=== PATIENT | male | born 1960 | race Caucasian/White ===

== ENCOUNTER 2017-04-02 12:49 | Inpatient (IN) | payer OTHER ==
[2017-04-02] VITALS (7 sets, daily range): BP systolic 116–158; BP diastolic 73–84; PULSE 78–90; RESP 18; TEMP 97.7–98.3; O2SAT 94–100
[~2017-04-02] VITALS: Ht 175.3 cm; Wt 84.5 kg
[~2017-04-02 12:49] MED LIST: BISA10R PR; DOCU1CAP39 PO; ENOX40P SQ; FLEEENE3 PR; HYDR-3580 PO; MAGN30S PO
[2017-04-02] MEDS ORDERED: SODIUM CHLOR 0.9% 1000 ML INJ 1,000 ML IV ONE (12:56)
--- NOTE | 2017-04-02 12:56 | PD ---
HPI Chief Complaint: Neuro Symptoms/ Deficits Time Seen by Provider: 12:56 Travel History International Travel<30 days: No Contact w/Intl Traveler<30days: No Traveled to known affect area: No History of Present Illness HPI 56 year old male presents to the ED for evaluation of RUE numbness and decreased weakness. Pt woke up at 830a this morning and "felt weird." His right arm felt "asleep", but he thought nothing of it, so he went back to bed. When he woke up later, the arm was still numb. He noticed a decrease in strength when holding his coffee mug. He felt like it was improving, but then returned, so he decided to come to the ED for evaluation. Pt has not significant medical history. He denies any chest pain or tightness. No difficulty breathing. No headache or visual changes. No other symptoms to report. PFSH Past Medical History Arthritis: No Asthma: No Autoimmune Disease: No Anxiety: No Depression: No Heart Rhythm Problems: No Cancer: No Cardiovascular Problems: No High Cholesterol: No Chemotherapy: No Chest Pain: No Congestive Heart Failure: No COPD: No Cerebrovascular Accident: No Diabetes: No Endocrine: No GERD: Yes Genitourinary: No Hiatal Hernia: No Immune Disorder: No Kidney Stones: No Musculoskeletal: No Neurologic: No Reproductive: No Respiratory: No Migraines: No Radiation Therapy: No Renal Failure: No Seizures: No Sickle Cell Disease: No Sleep Apnea: No Thyroid Disease: No Ulcer: No Past Surgical History Abdominal Surgery: No Cardiac Surgery: No Endocrine Surgery: No Eye Surgery: Yes (Cataract sugery ) Genitourinary Surgery: No Gynecologic Surgery: No Oral Surgery: Yes (Gum surgery) Thoracic Surgery: No Other Surgery: Yes (VARICOUS VEIN) Social History Alcohol Use: No Tobacco Use: No Substance Use: No Allergies-Medications (Allergen,Severity, Reaction): Coded Allergies: No Known Allergies (Unverified , 04/20/14) Reported Meds & Prescriptions Reported Meds & Active Scripts Active Review of Systems Except as stated in HPI: all other systems reviewed are Neg Physical Exam Narrative GENERAL: Well-nourished male patient, lying in bed in no acute distress. SKIN: Focused skin assessment warm/dry. HEAD: Atraumatic. Normocephalic. EYES: Pupils equal and round. No scleral icterus. No injection or drainage. ENT: No nasal bleeding or discharge. Mucous membranes pink and moist. NECK: Trachea midline. No JVD. CARDIOVASCULAR: Regular rate and rhythm. No murmur appreciated. RESPIRATORY: No accessory muscle use. Clear to auscultation. Breath sounds equal bilaterally. GASTROINTESTINAL: Abdomen soft, non-tender, nondistended. Hepatic and splenic margins not palpable. MUSCULOSKELETAL: No obvious deformities. No clubbing. No cyanosis. No edema. 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 No obvious cranial nerve deficits. Normal speech. PSYCHIATRIC: Appropriate mood and affect; insight and judgment normal. Data Data Last Documented VS Vital Signs Date Time Temp Pulse Resp B/P Pulse Ox O2 Delivery O2 Flow Rate FiO2 04/02/17 14:54 78 18 134/84 100 Nasal Cannula 2 04/02/17 12:52 97.7 Orders Activity Bed Rest (04/02/17 ) Electrocardiogram (04/02/17 ) Prothrombin Time / Inr (Pt) (04/02/17 12:56) Act Partial Throm Time (Ptt) (04/02/17 12:56) Complete Blood Count With Diff (04/02/17 12:56) Fibrinogen (04/02/17 12:56) Creatine Kinase (Cpk) (04/02/17 12:56) Troponin I (04/02/17 12:56) Drug Screen, Random Urine (04/02/17 12:56) Blood Glucose (04/02/17 12:56) Ecg Monitoring (04/02/17 12:56) Neuro Checks Q2HX12,Q4H (04/02/17 12:56) Nursing Bedside Swallow Assess .ONCE (04/02/17 12:56) Iv Access Insert/Monitor (04/02/17 12:56) NPO (04/02/17 12:56) Oximetry (04/02/17 12:56) Oxygen Administration (04/02/17 12:56) Sodium Chlor 0.9% 1000 Ml Inj (Ns 1000 M (04/02/17 12:56) Cath For Specimen (04/02/17 12:56) Nursing Bedside Swallow Assess .ONCE (04/02/17 12:56) Ct Brain W/O Iv Contrast(Rout) (04/02/17 ) Aspirin Chew (Aspirin Chew) (04/02/17 14:45) Labs Laboratory Tests Test 04/02/17 04/02/17 13:08 14:03 White Blood Count 5.8 TH/MM3 Red Blood Count 5.32 MIL/MM3 Hemoglobin 15.4 GM/DL Hematocrit 46.4 % Mean Corpuscular Volume 87.2 FL Mean Corpuscular Hemoglobin 28.9 PG Mean Corpuscular Hemoglobin 33.2 % Concent Red Cell Distribution Width 13.6 % Platelet Count 215 TH/MM3 Mean Platelet Volume 8.6 FL Neutrophils (%) (Auto) 51.0 % Lymphocytes (%) (Auto) 31.1 % Monocytes (%) (Auto) 14.5 % Eosinophils (%) (Auto) 2.7 % Basophils (%) (Auto) 0.7 % Neutrophils # (Auto) 3.0 TH/MM3 Lymphocytes # (Auto) 1.8 TH/MM3 Monocytes # (Auto) 0.8 TH/MM3 Eosinophils # (Auto) 0.2 TH/MM3 Basophils # (Auto) 0.0 TH/MM3 CBC Comment DIFF FINAL Differential Comment Prothrombin Time 10.7 SEC Prothromb Time International 1.0 RATIO Ratio Activated Partial 27.4 SEC Thromboplast Time Fibrinogen 419 mg/dL Total Creatine Kinase 72 U/L Troponin I LESS THAN 0.02 NG/ML Urine Opiates Screen NEG Urine Barbiturates Screen NEG Urine Amphetamines Screen NEG Urine Benzodiazepines Screen NEG Urine Cocaine Screen NEG Urine Cannabinoids Screen NEG MDM Medical Decision Making Medical Screen Exam Complete: Yes Emergency Medical Condition: Yes Medical Record Reviewed: Yes Differential Diagnosis TIA versus CVA versus electrolyte abnormality versus nerve palsy Narrative Course 56-year-old male presents to emergency department for evaluation of right upper extremity numbness or weakness. Patient does have positive pronator drift with decreased strength right upper extremity. No other focal deficits or weakness. CT imaging is without acute intracranial normality. Patient is given by mouth aspirin. Laboratory Tests Test 04/02/17 04/02/17 13:08 14:03 White Blood Count 5.8 TH/MM3 Red Blood Count 5.32 MIL/MM3 Hemoglobin 15.4 GM/DL Hematocrit 46.4 % Mean Corpuscular Volume 87.2 FL Mean Corpuscular Hemoglobin 28.9 PG Mean Corpuscular Hemoglobin 33.2 % Concent Red Cell Distribution Width 13.6 % Platelet Count 215 TH/MM3 Mean Platelet Volume 8.6 FL Neutrophils (%) (Auto) 51.0 % Lymphocytes (%) (Auto) 31.1 % Monocytes (%) (Auto) 14.5 % Eosinophils (%) (Auto) 2.7 % Basophils (%) (Auto) 0.7 % Neutrophils # (Auto) 3.0 TH/MM3 Lymphocytes # (Auto) 1.8 TH/MM3 Monocytes # (Auto) 0.8 TH/MM3 Eosinophils # (Auto) 0.2 TH/MM3 Basophils # (Auto) 0.0 TH/MM3 CBC Comment DIFF FINAL Differential Comment Prothrombin Time 10.7 SEC Prothromb Time International 1.0 RATIO Ratio Activated Partial 27.4 SEC Thromboplast Time Fibrinogen 419 mg/dL Total Creatine Kinase 72 U/L Troponin I LESS THAN 0.02 NG/ML Urine Opiates Screen NEG Urine Barbiturates Screen NEG Urine Amphetamines Screen NEG Urine Benzodiazepines Screen NEG Urine Cocaine Screen NEG Urine Cannabinoids Screen NEG Lab work is without acute concern. A local but the symptoms and we have no time of onset. He does not meet stroke criteria. Patient be admitted observation for TIA versus CVA workup. Diagnosis Primary Impression: Right upper extremity numbness Additional Impression: Right arm weakness Admitting Information Admitting Physician Requests: Observation Condition: Stable Ana Rosa Eaton Apr 02, 2017 12:56
[2017-04-02 13:23] LABS: BASOPHIL % 0.7 % (0.0-2.0); EOSINOPHIL # 0.2 TH/MM3 (0-0.4); EOSINOPHIL % 2.7 % (0.0-4.0); HEMATOCRIT 46.4 % (39.0-51.0); HEMO FLAGS DIFF FINAL; LYMPH % 31.1 % (9.0-44.0); LYMPHOCYTE # 1.8 TH/MM3 (1.0-4.8); MEAN CELL VOLUME 87.2 FL (80.0-100.0); MEAN CORPUSCULAR HEMOGLOBIN 28.9 PG (27.0-34.0); MEAN CORPUSCULAR HGB CONC 33.2 % (32.0-36.0); MONO % 14.5 % (0.0-8.0); PLATELET COUNT 215 TH/MM3 (150-450); RED BLOOD COUNT 5.32 MIL/MM3 (4.50-5.90); RED CELL DISTRIBUTION WIDTH 13.6 % (11.6-17.2); WHITE BLOOD COUNT 5.8 TH/MM3 (4.0-11.0)
[2017-04-02 13:45] LABS: APTT (PATIENT) 27.4 SEC (24.3-30.1); PROTHROMBIN TIME - PATIENT 10.7 SEC (9.8-11.6)
[2017-04-02 13:57] LABS: CREATINE KINASE 72 U/L (39-308)
--- NOTE | 2017-04-02 14:26 | RADRPT ---
EXAM DATE/TIME: 04/02/2017 14:15 [facility] COMPARISON: No previous studies available for comparison. INDICATIONS : Right arm weakness since 8am. RADIATION DOSE: 34.84 CTDIvol (mGy) MEDICAL HISTORY : None SURGICAL HISTORY : lens implant, gum surgery, varicose veins ENCOUNTER: Initial ACUITY: 1 day PAIN SCALE: 0/10 LOCATION: cranial TECHNIQUE: Multiple contiguous axial images were obtained of the head. Using automated exposure control and adj ustment of the mA and/or kV according to patient size, radiation dose was kept as low as reasonably a chievable to obtain optimal diagnostic quality images. DICOM format image data is available electro nically for review and comparison. FINDINGS: CEREBRUM: The ventricles are normal for age. No evidence of midline shift, mass lesion, hemorrhage or acute in farction. No extra-axial fluid collections are seen. POSTERIOR FOSSA: The cerebellum and brainstem are intact. The 4th ventricle is midline. The cerebellopontine angle i s unremarkable. EXTRACRANIAL: The visualized portion of the orbits is intact. SKULL: The calvaria is intact. No evidence of skull fracture. CONCLUSION: Negative noncontrast CT. Eliu Hartmann MD on April 02, 2017 at 14:23 Board Certified Radiologist. This report was verified electronically.
[2017-04-02] MEDS ORDERED: ASPIRIN 81 MG CHEW TAB CHEW SCH (14:45)
[2017-04-02] MEDS ORDERED: LABETALOL HCL 100 MG/20 ML VIAL IV PRN (15:45)
[2017-04-02] MEDS ORDERED: TEMAZEPAM 15 MG CAP PO PRN (15:45)
[2017-04-02] MEDS ORDERED: MAGNESIUM HYDROXIDE SUSP 30 ML CUP PO PRN (15:45)
[2017-04-02] MEDS ORDERED: ACETAMINOPHEN 325 MG TAB PO PRN (15:45)
[2017-04-02] MEDS ORDERED: ENALAPRILAT 1.25 MG/ML VIAL IV PRN (15:45)
[2017-04-02] MEDS ORDERED: NALOXONE HCL 0.4 MG/ML AMP IV PRN (15:45)
[2017-04-02] MEDS ORDERED: ONDANSETRON HCL 4 MG/2 ML VIAL IVP PRN (15:45)
[2017-04-02] MEDS ORDERED: SODIUM CHLORIDE 0.9% FLUSH 10 ML FLUSH IV FLUSH PRN (15:45)
[2017-04-02] MEDS: ASPIRIN 325 MG TAB PO SCH (15:55)
--- NOTE | 2017-04-02 16:08 | RADRPT ---
EXAM DATE/TIME: 04/02/2017 15:55 [facility] COMPARISON: ELBOW LEFT COMPLETE (4 VWS), April 21, 2014, 10:49. INDICATIONS : Cough, possible stroke. MEDICAL HISTORY : None. SURGICAL HISTORY : Bilateral varicose vein removal. ENCOUNTER: Initial ACUITY: 1 day PAIN SCORE: 1/10 LOCATION: Bilateral chest FINDINGS: A single view of the chest demonstrates the lungs to be symmetrically aerated without evidence of mas s, infiltrate or effusion. The cardiomediastinal contours are unremarkable. Osseous structures are intact. CONCLUSION: 1. No acute cardiopulmonary findings. Dipesh Zamora MD on April 02, 2017 at 16:06 Board Certified Radiologist. This report was verified electronically.
--- NOTE | 2017-04-02 16:28 | HHI.HP ---
HPI [facility] Primary Care Physician Guillermo Cabral MD Admission Diagnosis CVA v TIA Chief Complaint: Presthesia Travel History International Travel<30 Days: No Contact w/Intl Traveler <30 Da: No Traveled to Known Affected Are: No History of Present Illness Mr. Colon is a pleasant 56 y/o male without significant PMH who presented to the ED for evaluation of RUE numbness and weakness. Pt reportedly woke up at 8: 30AM this morning and "felt weird." His states that he felt like his right arm was "asleep." He dismissed this and went back sleep. He later woke up and it felt that his arm was still numb. 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 After a few hours he felt like it was improving, but then it worsened again and he decided to come to the ED for evaluation. He denies any chest pain, SOB, headache or visual changes. Pt was admitted for further workup and to r/o CVA. Review of Systems Constitutional: DENIES: Fever, Chills Eyes: DENIES: Vision loss Ears, nose, mouth, throat: DENIES: Hearing loss Respiratory: DENIES: Cough, Shortness of breath Cardiovascular: DENIES: Chest pain, Palpitations, Lower Extremity Edema Gastrointestinal: DENIES: Abdominal pain, Nausea, Vomiting Genitourinary: DENIES: Dysuria Musculoskeletal: DENIES: Neck pain Integumentary: DENIES: Rash Neurologic: COMPLAINS OF: Localized weakness, Paresthesias, DENIES: Headache, Speech Problems, Poor Balance Psychiatric: DENIES: Confusion, Depression Past Family Social History Past Medical History Hx of cataracts Several nondisplaced fractures of the pelvis and left radial fracture in 2013 after a fall off of a ladder GERD Hyperlipidemia Past Surgical History Hx of cataract surgery Hx of varicose vein surgery bilaterally Tonsillectomy Reported Medications No outpt medications Allergies: Coded Allergies: Penicillins (Verified Allergy, Mild, RASH, 04/02/17) Family History Noncontributory Social History Denies any alcohol, tobacco or illicit drug use Physical Exam Vital Signs Vital Signs Date Time Temp Pulse Resp B/P Pulse Ox O2 Delivery O2 Flow Rate FiO2 04/02/17 14:54 78 18 134/84 100 Nasal Cannula 2 04/02/17 13:00 100 Nasal Cannula 2 04/02/17 13:00 86 18 142/76 100 Room Air 04/02/17 12:52 97.7 90 18 158/77 100 Physical Exam GENERAL: This is a well-nourished, well-developed patient, in no apparent distress. HEENT: Atraumatic. Normocephalic. No temporal or scalp tenderness. No scleral icterus. Airway patent. NECK: Trachea midline, supple, nontender. CARDIO: Regular RESP: CTA bilaterally. No wheezes, rales, or rhonchi. ABD: +BS, soft, non-tender, nondistended. EXT: Extremities without clubbing, cyanosis, or edema. NEURO: Awake and alert. +R pronator drift; 3/5 manager business management strength RUE; 5/5 strength all other extremities. Normal speech. Laboratory Laboratory Tests Test 04/02/17 04/02/17 13:08 14:03 White Blood Count 5.8 Red Blood Count 5.32 Hemoglobin 15.4 Hematocrit 46.4 Mean Corpuscular Volume 87.2 Mean Corpuscular Hemoglobin 28.9 Mean Corpuscular Hemoglobin 33.2 Concent Red Cell Distribution Width 13.6 Platelet Count 215 Mean Platelet Volume 8.6 Neutrophils (%) (Auto) 51.0 Lymphocytes (%) (Auto) 31.1 Monocytes (%) (Auto) 14.5 Eosinophils (%) (Auto) 2.7 Basophils (%) (Auto) 0.7 Neutrophils # (Auto) 3.0 Lymphocytes # (Auto) 1.8 Monocytes # (Auto) 0.8 Eosinophils # (Auto) 0.2 Basophils # (Auto) 0.0 CBC Comment DIFF FINAL Differential Comment Prothrombin Time 10.7 Prothromb Time International 1.0 Ratio Activated Partial 27.4 Thromboplast Time Fibrinogen 419 Total Creatine Kinase 72 Troponin I LESS THAN 0.02 Urine Opiates Screen NEG Urine Barbiturates Screen NEG Urine Amphetamines Screen NEG Urine Benzodiazepines Screen NEG Urine Cocaine Screen NEG Urine Cannabinoids Screen NEG Result Diagram: 04/02/17 1308 Imaging Last Impressions Chest X-Ray 04/02/17 1531 Signed Impressions: Service Date/Time: Sunday, April 02, 2017 15:55 - CONCLUSION: 1. No acute cardiopulmonary findings. Dipesh Zamora MD Head Magnetic Resonance Angiography 04/02/17 0000 Signed Impressions: Service Date/Time: Sunday, April 02, 2017 16:05 - CONCLUSION: 1. Negative examination. Dipesh Zamora MD Head CT 04/02/17 0000 Signed Impressions: Service Date/Time: Sunday, April 02, 2017 14:15 - CONCLUSION: Negative noncontrast CT. Eliu Hartmann MD Cervical Spine MRI 04/02/17 0000 Signed Impressions: Service Date/Time: Sunday, April 02, 2017 16:05 - CONCLUSION: 1. Central canal stenosis at C5-6 secondary to diffuse disc bulge with obliteration of the CSF surrounding the cord and mild flattening. 2. Broad base disc bulge at C4- 5 greatest in left parasagittal region which reached the anterior cord with slight flattening and turning. There is no abnormal signal. 3. Moderate to severe narrowing of the neural foramina bilaterally at the C4-5 and C5-6 levels as well as on the left at C2-3. 4. Milder disc bulge at C3-4 with no mass effect upon the cord. 5. Diffuse degenerative disc change. Eliu Hartmann MD Brain MRI 04/02/17 0000 Signed Impressions: Service Date/Time: Sunday, April 02, 2017 16:05 - CONCLUSION: 1. Negative examination. Dipesh Zamora MD Last Impressions Head CT 04/02/17 0000 Signed Impressions: Service Date/Time: Sunday, April 02, 2017 14:15 - CONCLUSION: Negative noncontrast CT. Eliu Hartmann MD Septic Shock Reassessment Heart: Regular rate and rhythm Lungs: Clear Skin: Warm Assessment and Plan Problem List: (1) Right arm weakness Status: Acute Plan: - Pt is a 56 y/o male with hx of previous multiple nondisplaced fractures of the pelvis and left radial fracture in 2013 after a fall off of a ladder - Pt presented to the ED with RUE paresthesias and weakness - Head CT (04/02) --> Negative - MRI/MRA Brain (04/02) --> Negative - Carotid US ordered - 2D echo ordered - MRI Cervical spine (04/02) --> - Central canal stenosis at C5-6 secondary to diffuse disc bulge with obliteration of the CSF surrounding the cord and mild flattening. - Broad base disc bulge at C4-5 greatest in left parasagittal region which reached the anterior cord with slight flattening and turning. There is no abnormal signal. - Moderate to severe narrowing of the neural foramina bilaterally at the C4- 5 and C5-6 levels as well as on the left at C2-3. - Milder disc bulge at C3-4 with no mass effect upon the cord. - Diffuse degenerative disc change. - Consult Neurosurgery - Bed rest - Neuro checks - Pt was given ASA in the ED and started on IVF - Start Decadron 4mg Q6H - Ativan PRN for spasms - NPO after MN - DVT prophylaxis with SCDs (2) Right upper extremity numbness Status: Acute Plan: - See above. Assessment and Plan Patient examined. Assessment and plan formulated with Lois Rodriguez PA-C. I agree with the above. C5-6 disk bulge and canal stenosis Pt will need evaluation by Neurosurgery. consult placed. Lois Rodriguez Apr 02, 2017 16:28 Jude Hutchison DO Apr 03, 2017 08:30
--- NOTE | 2017-04-02 16:33 | RADRPT ---
EXAM DATE/TIME: 04/02/2017 16:05 [facility] COMPARISON: No previous studies available for comparison. INDICATIONS : TIA. Right upper extremity numbness. MEDICAL HISTORY : None. SURGICAL HISTORY : Tonsillectomy. Varicose vein surgery. ENCOUNTER: Subsequent ACUITY: 1 day PAIN SCORE: 3/10 LOCATION: cranial Please note a normal MRA of the brain does not entirely exclude the possibility of a small aneurysm, nor the possibility of distal intracranial vessel disease. TECHNIQUE: 3D time of flight MRA was performed. Source images, multiplanar STS MIP, and 3D volume MIP reconstru ctions were reviewed. FINDINGS: There is excellent visualization of the major intracranial arteries out to the second-order branch ve ssels. There is no evidence for aneurysm, vessel truncation or stenosis, and no evidence for vascula r malformation. CONCLUSION: 1. Negative examination. Dipesh Zamora MD on April 02, 2017 at 16:29 Board Certified Radiologist. This report was verified electronically.
--- NOTE | 2017-04-02 16:44 | RADRPT ---
EXAM DATE/TIME: 04/02/2017 16:05 [place] Corrected on: April 03, 2017; [facility] COMPARISON: No previous studies available for comparison. INDICATIONS : TIA. Right upper extremity numbness. MEDICAL HISTORY : None. SURGICAL HISTORY : Tonsillectomy. Varicose vein surgery. ENCOUNTER: Subsequent ACUITY: 1 day PAIN SCORE: 3/10 LOCATION: cranial TECHNIQUE: Multiplanar, multisequence MRI of the brain was performed without contrast. FINDINGS: CEREBRUM: The ventricles are normal for age. No evidence of midline shift, mass lesion, hemorrhage or acute in farction. No extraaxial fluid collections are seen. The pituitary gland and suprasellar cistern are normal in configuration. The bladder weighted images do demonstrate some very subtle increased signa l in the high left parietal cortices. WHITE MATTER: No significant signal abnormalities are seen in the white matter. POSTERIOR FOSSA: The cerebellum and brainstem are intact. The 4th ventricle is midline. The cerebellopontine angle is unremarkable. The cerebellar tonsils are normal in position. DIFFUSION IMAGING: No focal areas of restricted diffusion are seen. No evidence of acute infarction. EXTRACRANIAL: The visualized portions of the orbits and paranasal sinuses are unremarkable. CONCLUSION: 1. There is subtle abnormal flair signal in the high left parietal cortices. Dipesh Zamora MD on April 02, 2017 at 16:38 Board Certified Radiologist. This report was verified electronically. Dipesh Zamora MD on April 03, 2017 at 13:43 Board Certified Radiologist. This report was verified electronically.
--- NOTE | 2017-04-02 17:02 | RADRPT ---
EXAM DATE/TIME: 04/02/2017 16:05 [facility] COMPARISON: No previous studies available for comparison. INDICATIONS : Extremity weakness. Right upper extremity numbness. MEDICAL HISTORY : None. SURGICAL HISTORY : Tonsillectomy. Varicose vein surgery. ENCOUNTER: Subsequent ACUITY: 3 day PAIN SCORE: 3/10 LOCATION: cranial TECHNIQUE: Multiplanar, multisequence MRI examination of the cervical spine was performed. FINDINGS: VERTEBRAE: Normal vertebral body height. Homogeneous marrow signal. DISCS: There are degenerative disc changes with desiccation mild disc space narrowing. Anterior extradural d efects are noted on the sagittal images at the C3-4 and C5-6 levels. ALIGNMENT: No evidence of subluxation. CORD: Normal configuration and signal. POST FOSSA: The cerebellar tonsils are normal in position. C2-C3: The thecal sac has a normal configuration. There is no evidence of disc herniation or spinal canal s tenosis. There is moderate narrowing of the left neural foramina secondary to degenerative change inv olving the uncovertebral joint and facet joint. The right neural foramen is patent. C3-C4: There is a broad-based posterior disc bulge which comes in close contact with anterior cord with no m ass effect. The CSF space surrounding cord is nearly totally obliterated with a residual AP diameter of the canal measuring approximately 10 mm. There is moderate to severe narrowing of the neural megan francy bilaterally. C4-C5: There is a broad-based disc bulge is the left parasagittal region. This comes in contact with anterio r cord which is mildly indented and turned with no abnormal signal. The CSF space around the cord is nearly totally obliterated with a residual AP diameter of the canal measuring approximately 7-8 mm. T here is moderate to severe narrowing of the neural foramina bilaterally. C5-C6: Diffuse annular disc bulge which meets the anterior cord with slight flattening. The CSF space surrou nding the cord is obliterated and the residual AP diameter of the canal measures approximately 8 mm. There is moderate to severe narrowing of the neural foramina bilaterally. C6-C7: The thecal sac has a normal configuration. There is no evidence of disc herniation or spinal canal s tenosis. There is mild narrowing of the neural foramina bilaterally. C7-T1: The thecal sac has a normal configuration. There is no evidence of disc herniation or spinal canal s tenosis. The neural foramina are patent bilaterally. CONCLUSION: 1. Central canal stenosis at C5-6 secondary to diffuse disc bulge with obliteration of the CSF surrou nding the cord and mild flattening. 2. Broad base disc bulge at C4-5 greatest in left parasagittal region which reached the anterior cor d with slight flattening and turning. There is no abnormal signal. 3. Moderate to severe narrowing of the neural foramina bilaterally at the C4-5 and C5-6 levels as wel l as on the left at C2-3. 4. Milder disc bulge at C3-4 with no mass effect upon the cord. 5. Diffuse degenerative disc change. Eliu Hartmann MD on April 02, 2017 at 16:52 Board Certified Radiologist. This report was verified electronically.
[2017-04-02] MEDS: DEXAMETHASONE SOD PHOS 4 MG/ML VIAL IV PUSH SCH (20:04)
[2017-04-02] MEDS: SODIUM CHLORIDE 0.9% FLUSH 10 ML FLUSH IV FLUSH SCH (20:04)
[2017-04-02] MEDS: PRAVASTATIN SOD 40 MG TAB PO SCH (20:04)
[2017-04-02] MEDS: LORazepam 2 MG/ML VIAL IV PUSH PRN (21:46)
--- NOTE | 2017-04-02 22:30 | RADRPT ---
EXAM DATE/TIME: 04/02/2017 20:18 [facility] COMPARISON: No previous studies available for comparison. INDICATIONS : Transient ischemic attack. MEDICAL HISTORY : Gastroesophageal reflux disease. Heartburn. SURGICAL HISTORY : Tonsillectomy. Cataract surgery. Right lens implant. Gum surgery. Varicous vein surgery. ENCOUNTER: Initial ACUITY: 1 day PAIN SCORE: 0/10 LOCATION: Bilateral neck PEAK SYSTOLIC VELOCITIES (cm/sec): ICA/CCA RATIO: Right: 0.9 Left: 1.0 ICA: Right: 82.5 Left: 116.8 CCA: Right: 94.3 Left: 112.1 ECA: Right: 146.6 Left: 114.0 VERTEBRAL: Right: 36.1 antegrade Left: 55.0 antegrade Elevated flow velocities and ICA/CCA ratios have been found to correlate with increased degrees of vessel stenosis, calculated as percentage of diameter relative to a normal segment of distal ICA/CCA FINDINGS: RIGHT CAROTID: No significant stenosis is visualized. The waveforms are within normal limits. LEFT CAROTID: No significant stenosis is visualized. The waveforms are within normal limits. VERTEBRAL ARTERIES: Antegrade flow is seen in both vertebral arteries. MISCELLANEOUS: None. CONCLUSION: Negative. No significant plaque or narrowing of either carotid. Ramsey Swartz MD on April 02, 2017 at 22:28 Board Certified Radiologist. This report was verified electronically.
[2017-04-03] VITALS (10 sets, daily range): BP systolic 113–136; BP diastolic 70–84; PULSE 68–94; RESP 16–18; TEMP 97.5–98.3; O2SAT 95–98
[2017-04-03] MEDS: DEXAMETHASONE SOD PHOS 4 MG/ML VIAL IV PUSH SCH ×2 (00:15→05:29)
[2017-04-03] MEDS: LORazepam 2 MG/ML VIAL IV PUSH PRN ×2 (03:47→11:06)
[2017-04-03 09:19] LABS: AUTOMATED NEUTROPHIL # 3.5 TH/MM3 (1.8-7.7); BASOPHIL % 0.2 % (0.0-2.0); EOSINOPHIL % 0.2 % (0.0-4.0); HEMATOCRIT 49.7 % (39.0-51.0); HEMO FLAGS DIFF FINAL; LYMPH % 12.1 % (9.0-44.0); LYMPHOCYTE # 0.5 TH/MM3 (1.0-4.8); MEAN CELL VOLUME 88.8 FL (80.0-100.0); MEAN CORPUSCULAR HEMOGLOBIN 29.1 PG (27.0-34.0); MEAN CORPUSCULAR HGB CONC 32.7 % (32.0-36.0); MONO % 1.7 % (0.0-8.0); NEUT % 85.8 % (16.0-70.0); PLATELET COUNT 174 TH/MM3 (150-450); RED CELL DISTRIBUTION WIDTH 13.7 % (11.6-17.2)
[2017-04-03] MEDS: ASPIRIN 325 MG TAB PO SCH (09:42)
[2017-04-03] MEDS: SODIUM CHLORIDE 0.9% FLUSH 10 ML FLUSH IV FLUSH SCH ×2 (09:43→20:14)
[2017-04-03 09:45] LABS: BICARBONATE 23.3 MEQ/L (21.0-32.0); POTASSIUM 4.3 MEQ/L (3.5-5.1)
[2017-04-03 09:48] LABS: HDL CHOLESTEROL 53.4 MG/DL (40.0-60.0)
[2017-04-03] MEDS ORDERED: SODIUM CHLOR 0.9% 1000 ML INJ 1,000 ML IV SCH (10:29)
[2017-04-03 11:19] LABS: FREE T4 1.15 NG/DL (0.76-1.46)
[2017-04-03] MEDS: levETIRAcetam INJ 500 MG in SODIUM CHLORIDE 0.9% INJ 100 ML IV SCH ×2 (12:00→15:28)
[2017-04-03] MEDS: ACYCLOVIR INJ 800 MG in SODIUM CHLORIDE 0.9% INJ 150 ML IV SCH ×2 (12:00→16:36)
[2017-04-03] MEDS ORDERED: GADODIAMIDE PF 287 MG/ML 20 ML VIAL (for RAD MRI) IV ONE (12:08)
--- NOTE | 2017-04-03 12:13 | MB ---
cc: YAYA SYEKS M.D. DATE OF CONSULTATION: 04/03/2017 REASON FOR CONSULTATION: A 56-year-old right-handed man, he has been totally healthy fell off a ladder 2 years ago and had a pelvic fracture but no damage to his neck than 8 o'clock yesterday morning woke up could move the right arm well brought into the hospital was noted to have facilitations on the right arm. No symptoms above the neck. This has never happened to him before, he has never had any numbness or tingling in the arm. REVIEW OF SYSTEMS Denies any hypertension, diabetes, hypercholesterolemia, ID coronary artery bypass graft, cardiac arrhythmia, renal, hepatic, pulmonary disease, thyroid disease, lupus, ulcer, cancer seizure, stroke. He has not had any tick bites, Lyme disease. SOCIAL HISTORY Not a smoker or drinker lives with his . FAMILY HISTORY Negative cancer seizure, stroke. Positive dementia in his mother. PAST MEDICAL HISTORY: He had a past medical history vein surgery years ago. ALLERGIES NO KNOWN DRUG ALLERGIES MEDICATIONS: No medications does not take an aspirin a day. PHYSICAL EXAMINATION: IN GENERAL: Afebrile 93, 18, 136/80, sinus rhythm. NECK: There were no carotid bruits. CARDIOVASCULAR SYSTEM: Heart was regular rhythm I did not detect a murmur. NEUROLOGIC EXAM: Pupils are equal. Visual robles full. Extraocular intact without nystagmus. Face symmetric normal station. Tongue was midline. There is no drift on the left he had normal strength in the left upper and bilateral lower extremities. The right upper extremity he has 4+/5 on the right deltoid, 4/5 in the right triceps, finger his hand is fisted, hard to open up but I can open and the fingers up. He has tremors in the hand some fasciculations of the hand and also the arm and the right thigh. DTRs are 3+ throughout a little bit more hyperreflexic on the right than the left. The toes downgoing bilaterally but there is bilateral handle clonus more on the right than the left. Tone is markedly spastic in the right upper extremity slightly increased in bilateral lower extremities. He is not ataxic on finger to nose on either side. Pin prick was intact throughout. He has not had a bowel or bladder problems. LABORATORY DATA Drug screen is negative. Coags normal. Basic metabolic profile normal. Troponin normal. LDL is elevated to 124. BMP is normal. CPK normal. CBC normal. RADIOLOGIC: Had a MRA of the brain yesterday that was normal. A CT scan of his brain that was read as negative. MRI of his cervical spine showed some cord compression. Carotid ultrasound was normal. Chest x-ray Negative. MRI of the brain normal. MRI of the cervical spine; on my review he has a congenitally small spinal canal, he has a slight bulging disk C5-6. He has leftward bulging focal disc with some pressure on the cord. That would appear to be 4-5, neuro foraminal at 3-4, left greater then right, at 4/5, at all these levels. No major cord compression, however. MRI of brain; review of films. Diffusion image negative. On the flares there is a question if there is a little bit of berhane sulcal flare change on the left high up on the frontal parietal region. It shows up slightly on the diffusion image but not bright like an infarct. His MRA [place] review of the films. Does appear to be intact. IMPRESSION: This is an interesting case, initially I thought he probably had a cervical myelopathy but really do not see much on the MRI to indicate that although there is some mass effect on the left side of the cord focally at C4-5 from that focal bulging disk does not appear to be not be causing the symptoms in the bilateral lower extremities and right upper extremity. The right extremities very unusual and with the fisting probably goes more with the cortical changes on the MRI of the brain. Will check recheck an MRI of the brain with contrast along with an MR venogram. Likely an LP will have neurosurgery see him only for the cervical disk but to clear him for an LP. In addition we will check some blood work on him, I noted that he had dental work done at the end of last month and had a fever to about 101 or so. He did not take antibiotics before the dental procedure. We will do an echo make sure there is no endocarditis I will have infectious disease see him, there might be some focal cerebritis. We will check an electroencephalogram, put him on telemetry and check the MRI with contrast along with the MRI of the cervical spine with contrast in case its an occult, or myelopathy not seen well on the MR. I did not detect a murmur at this time but endocarditis could be considered. MD Rey Koch /10:16 AM /11:47 AM
--- NOTE | 2017-04-03 12:33 | RADRPT ---
EXAM DATE/TIME: 04/03/2017 11:41 [facility] COMPARISON: MRI BRAIN W/O CONTRAST, April 02, 2017, 16:05. INDICATIONS : Right upper extremity numbness. CONTRAST: 20 cc Omniscan (gadodiamide) IV MEDICAL HISTORY : None. SURGICAL HISTORY : Tonsillectomy. ENCOUNTER: Initial ACUITY: 2 day PAIN SCORE: 0/10 LOCATION: cranial TECHNIQUE: Multiplanar, multisequence MRI of the brain was performed both prior to and following the administrat ion of paramagnetic contrast. FINDINGS: CEREBRUM: The ventricles are normal for age. No evidence of midline shift, mass lesion, hemorrhage or acute in farction. No extraaxial fluid collections are seen. The pituitary gland and suprasellar cistern are normal in configuration. WHITE MATTER: No significant signal abnormalities are seen in the white matter. POSTERIOR FOSSA: The cerebellum and brainstem are intact. The 4th ventricle is midline. The cerebellopontine angle is unremarkable. The cerebellar tonsils are normal in position. DIFFUSION IMAGING: No focal areas of restricted diffusion are seen. No evidence of acute infarction. EXTRACRANIAL: The visualized portions of the orbits and paranasal sinuses are unremarkable. POST-CONTRAST: No abnormal areas of parenchymal or dural enhancement. No evidence of blood-brain barrier breakdown. CONCLUSION: Unremarkable MRI of the brain. No enhancement.. Keegan Dodd MD on April 03, 2017 at 12:30 Board Certified Radiologist. This report was verified electronically.
--- NOTE | 2017-04-03 12:42 | RADRPT ---
EXAM DATE/TIME: 04/03/2017 11:41 [facility] COMPARISON: No previous studies available for comparison. INDICATIONS : Right upper extremity numbness. CONTRAST: 20 cc Omniscan (gadodiamide) IV MEDICAL HISTORY : None. SURGICAL HISTORY : Tonsillectomy. ENCOUNTER: Initial ACUITY: 2 day PAIN SCORE: 0/10 LOCATION: Paraspinal TECHNIQUE: Multiplanar multisequence MRI of the thoracic spine was performed. FINDINGS: VERTEBRA: Normal vertebral body height. Homogeneous marrow signal. There is some chronic endplate changes from T6-T8. Diffuse mild degenerative changes. ALIGNMENT: Normal. CORD: Normal position and configuration. POST CONTRAST: No abnormal areas of contrast enhancement seen. T1-T2: Normal. T2-T3: The thecal sac has a normal diameter. No evidence of disc bulge or protrusion. T3-T4: The thecal sac has a normal diameter. No evidence of disc bulge or protrusion. T4-T5: The thecal sac has a normal diameter. No evidence of disc bulge or protrusion. T5-T6: Small asymmetric left-sided protrusion abuts the left ventral thecal sac. No canal stenosis.. T6-T7: Asymmetric left-sided disc bulge abuts ventral thecal sac without canal stenosis. T7-T8: The thecal sac has a normal diameter. No evidence of disc bulge or protrusion. T8-T9: The thecal sac has a normal diameter. No evidence of disc bulge or protrusion. T9-T10: Asymmetric left-sided bulge abuts the thecal sac without canal stenosis.. T10-T11: The thecal sac has a normal diameter. No evidence of disc bulge or protrusion. T11-T12: The thecal sac has a normal diameter. No evidence of disc bulge or protrusion. T12-L1: The thecal sac has a normal diameter. No evidence of disc bulge or protrusion. CONCLUSION: 1. Mild degenerative changes without compression fracture. 2. Disc bulges/protrusions at T5-6, T6-7 and T9-10 levels without canal stenosis. Keegan Dodd MD on April 03, 2017 at 12:39 Board Certified Radiologist. This report was verified electronically.
--- NOTE | 2017-04-03 12:44 | RADRPT ---
EXAM DATE/TIME: 04/03/2017 11:41 [facility] COMPARISON: MRI CERVICAL SPINE W/O CONTRAST, April 02, 2017, 16:05. INDICATIONS : Right upper extremity numbness. CONTRAST: 20 cc Omniscan (gadodiamide) IV MEDICAL HISTORY : None. SURGICAL HISTORY : Tonsillectomy. ENCOUNTER: Initial ACUITY: 2 day PAIN SCORE: 0/10 LOCATION: neck TECHNIQUE: Multiplanar, multisequence MRI examination of the cervical spine was performed. FINDINGS: There is motion artifact. VERTEBRAE: Normal vertebral body height. Homogeneous marrow signal. ALIGNMENT: No evidence of subluxation. CORD: Normal configuration and signal. POST FOSSA: The cerebellar tonsils are normal in position. POST-CONTRAST: No abnormal areas of enhancement are seen. The disc bulges seen on previous study are unchanged. Please refer to MRI of the cervical spine on for further detail. CONCLUSION: There is some motion artifact but no definite enhancement seen. Please refer to MRI of the cervical s pine for further detail on 04-02-17. Keegan Dodd MD on April 03, 2017 at 12:41 Board Certified Radiologist. This report was verified electronically.
--- NOTE | 2017-04-03 13:19 | PD.RAD ---
Post Procedure Progress Note Pre Procedure Diagnosis: (1) Right upper extremity numbness (2) Right arm weakness Post Procedure Diagnosis: (1) Right upper extremity numbness (2) Right arm weakness Procedure Date: Apr 03, 2017 Supervising Radiologist: Dipesh Zamora Estimated blood loss: None Anesthesia: Local Plan of Activity Patient to Unit: Nursing Unit Patient Condition: Fair Additional Comments: Lp completed single puncture at L4/L5 25cc of clear csf removed Opening pressure 22cm/h2o See PACS Report for procedural detail/treatment Dipesh Zamora MD Apr 03, 2017 13:19
--- NOTE | 2017-04-03 13:30 | RADRPT ---
EXAM DATE/TIME: 04/03/2017 11:41 [facility] COMPARISON: MRI BRAIN W & W/O CONTRAST, April 03, 2017, 11:41. MRI CERVICAL SPINE W/O CONTRAST, April 02 7, 16:05. INDICATIONS : Right upper extremity numbness. CONTRAST: 20 cc Omniscan (gadodiamide) IV MEDICAL HISTORY : None. SURGICAL HISTORY : Tonsillectomy. ENCOUNTER: Initial ACUITY: 2 day PAIN SCORE: 0/10 LOCATION: cranial Please note a normal MRA of the brain does not entirely exclude the possibility of a small aneurysm, nor the possibility of distal intracranial vessel disease. TECHNIQUE: MR venography of the brain was performed with multiplanar and 3D reconstructions. FINDINGS: The overall appearance of the examination is abnormal. The anterior and mid superior sagittal sinus i s occluded. The straight sinus is patent on the source images. The internal cerebral veins are patent on the source images. The distal portions of the superior sagittal sinus are patent along the occipi chicho cortex. The transverse sinuses are patent. The sigmoid sinuses and jugular vein are patent. CONCLUSION: 1. 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 The posterior portions of the sagittal sinus are patent. The transverse sinuses, straigh t sinus and internal cerebral veins are patent. Dipesh Zamora MD on April 03, 2017 at 13:22 Board Certified Radiologist. This report was verified electronically.
--- NOTE | 2017-04-03 14:30 | ECHRPT ---
Indication: CONCLUSIONS Normal left ventricular size. Wall thickness is normal. The left ventricular systolic function is low normal with an estimated ejection fraction in the rang e of 50- 55%. There is trace tricuspid valve regurgitation. The pulmonary valve is not well visualized. BP: / HR: Rhythm: MEASUREMENTS (Male / Female) Normal Values Technical Quality: 2D ECHO LV Diastolic Diameter PLAX 4.3 cm 4.2 - 5.9 / 3.9 - 5.3 cm LV Systolic Diameter PLAX 3.4 cm IVS Diastolic Thickness 1.1 cm 0.6 - 1.0 / 0.6 - 0.9 cm LVPW Diastolic Thickness 0.8 cm 0.6 - 1.0 / 0.6 - 0.9 cm LV Relative Wall Thickness 0.4 LA Systolic Diameter LX 3.7 cm 3.0 - 4.0 / 2.7 - 3.8 cm M-MODE Aortic Root Diameter MM 3.0 cm AV Cusp Separation MM 1.8 cm DOPPLER Mitral E Point Velocity 38.1 cm/s Mitral A Point Velocity 67.9 cm/s Mitral E to A Ratio 0.6 TR Peak Velocity 239.0 cm/s TR Peak Gradient 22.8 mmHg FINDINGS LEFT VENTRICLE Normal left ventricular size. Wall thickness is normal. The left ventricular systolic function is low normal with an estimated ejection fraction in the rang e of 50- 55%. RIGHT VENTRICLE Normal right ventricular size and systolic function. LEFT ATRIUM The left atrial size is normal. RIGHT ATRIUM The right atrial size is normal. ATRIAL SEPTUM Normal atrial septal thickness without atrial level shunting by limited color doppler interrogation. AORTA The aortic root and proximal ascending aorta are normal in size on limited imaging. MITRAL VALVE Structurally normal mitral valve. No mitral valve stenosis or regurgitation. AORTIC VALVE Trileaflet aortic valve. No aortic valve stenosis or regurgitation. TRICUSPID VALVE There is trace tricuspid valve regurgitation. PULMONARY VALVE The pulmonary valve is not well visualized. VESSELS The inferior vena cava is normal in size. PERICARDIUM No pericardial effusion. Isiah Wilde MD (Electronically Signed) Final Date:03 April 2017 14:30
--- NOTE | 2017-04-03 14:38 | EKG ---
Date Performed: 04/02/2017 Time Performed: 13:03:26 PTAGE: 56 years EKG: Sinus rhythm NORMAL ECG NO PREVIOUS TRACING DOCTOR: Tobias Hickey Interpretating Date/Time 04/03/2017 14:37:49
[2017-04-03 14:47] LABS: LACTIC ACID,CSF 2.2 MMOL/L (0.0-3.0)
--- NOTE | 2017-04-03 15:27 | MB ---
cc: KAROLINE CHAPA M.D., DONALD G. M.D. MCDONALD, DAVID DATE OF CONSULTATION 04/02/17 REASON FOR CONSULTATION Cervical disk protrusion. HISTORY OF PRESENT ILLNESS A 56-year-old gentleman who presented to the emergency room yesterday afternoon when he woke up in the morning with acute onset of right upper extremity monoparesis and felt like his whole hand and arm was asleep. He denies any left upper extremity or lower extremity symptoms. He denies any incontinence. He denies any neck pain. States he has some neck discomfort on a chronic basis and periodically gets chiropractic treatments. His symptoms have improved slightly since then. Extensive workup has been undertaken including a head CT scan which was negative, head MR angiogram which was negative and subsequently cervical spine MRI scan obtained reveals disk protrusions at C4-5 and C5-6 level __) to left side with mild to moderate stenosis although no significant cord compression or intrinsic cord changes are noted. MRI scan of the brain reveals subtle area of diffusion abnormality involving the left convexity posterior frontoparietal area. He denies any incontinence. He has not had any similar symptoms in the past. PAST MEDICAL HISTORY Hyperlipidemia, varicose vein resection, gastroesophageal reflux, left radius and pelvic fractures after a fall from ladder in 2013, cataracts, recent dental surgery for an abscess and was placed on antibiotics which he only took for 2 days. MEDICATIONS None other than periodic Motrin. ALLERGIES ALLERGIES AND PENICILLIN. SOCIAL HISTORY He is . His is here with him. Denies alcohol or tobacco use. REVIEW OF SYSTEMS Denies any headache. Denies much of a neck pain. Acute onset of right-sided weakness in the upper extremity since yesterday morning which has improved slightly initially. Also had paresthesias but stated this also resolved. Denies any chest pain or shortness of breath. Denies any abdominal pain. No nausea or vomiting. No history of easy bleeding or bruising. No fevers or chills. No incontinence. No recent weight gain or weight loss. No double vision or blurred vision. No difficulty with speech. LABORATORY FINDINGS White blood cell count 4, hemoglobin 16.3, platelet count 174. PT 10.7, INR 1.0, PTT 27.4, fibrinogen 419, sodium 138, potassium 4.3, BUN 11, creatinine 0.87, glucose 111. Toxicology screen is negative. ESR is 2. PHYSICAL EXAMINATION VITALS: Temperature 98.3, pulse is 94, respiratory rate 16, blood pressure 118/84, oxygen saturation 95% on room air. HEAD: Normocephalic, atraumatic. NECK: Supple with no guarding or rigidity. CHEST: Clear to auscultation bilaterally. HEART: Regular rate, rhythm. Normal S1-S2. ABDOMEN: Soft and nontender. EXTREMITIES: No cyanosis or edema. NEUROLOGIC: He is awake, alert. Pupils are equal, reactive. Extraocular muscles are intact. Face is symmetric. Tongue is midline. Motor strength in right upper extremity deltoids and biceps and triceps is 4-/5 and hand intrinsics is 3/5 especially cannot extend the fingers in his ulnar aspect. Left upper extremity he has mild hand intrinsic weakness about 4+/5. The rest is 5/5. Lower extremities 5/5. Negative Jose Enrique's. Negative Babinski. He does have increased reflexes in the lower extremities but not upper extremities and he says he has always had hyperreflexia. Light touch sensation is intact in the upper and lower extremities. IMPRESSION 1. [id number] cervical spinal stenosis at C4-5 and C5-6 with disk protrusion and osteophyte. This does not explain his significant right upper extremity monoparesis. 2. Possible left posterior frontoparietal area stroke. PLAN The patient does not require any urgent intervention for his cervical disk protrusions. He is undergoing further workup for his neurologic deficits by the neurology service and we have requested an MRI scan of the brain with contrast along with MR venogram of the brain and MRI of the cervical and thoracic spine with contrast also along with EEG. He will also benefit from occupational and physical therapy. I have discussed the findings with the patient as well as his and relatives at the bedside. MD WARREN Cevallos/CATHRYN /2:35 PM /3:11 PM
[2017-04-03 15:30] LABS: CSF LYMPHOCYTES 90 %; CSF MONOCYTES 3 %; CSF NEUTROPHILS 7 %; GROSS BLOOD TUBE #2 TRACE (0); GROSS BLOOD TUBE #3 0 (0); SUPERNATE COLOR TUBE #2 CLEAR (CLEAR); SUPERNATE COLOR TUBE #3 CLEAR (CLEAR); VOLUME TUBE # 1 4.8 ML; VOLUME TUBE # 4 7.5 ML
[2017-04-03 15:31] LABS: SUPERNATE COLOR TUBE #1 CLEAR (CLEAR); SUPERNATE COLOR TUBE #4 CLEAR (CLEAR)
[2017-04-03 16:17] LABS: WBC TUBE #1 36 /MM3 (0-10)
--- NOTE | 2017-04-03 16:46 | PD.CONS ---
History of Present Illness Service Infectious disease Consult Requested By Dr. Kumar Reason for Consult Evaluate patient for possible cerebritis Primary Care Physician Guillermo Cabral MD Diagnoses: History of Present Illness Patient seen and examined. Records reviewed. Patient is a 56-year-old male presented to the hospital for further evaluation of weakness in his right upper extremity. He was apparently in his usual self when he woke up the day prior to admission and his right upper extremity felt like it was asleep. He had a difficult time moving it. He stayed asleep and rested the whole day and he had experienced some improvement and again worsening of his symptoms, so he presented to the hospital for further evaluation and treatment. He denies any neck pain. He had one episode of brief headache that responded to Aleve. Denies any photophobia. He presented to the emergency room, and since presentation his had some improvement in his right upper extremity but still not his normal strength. He is right hand dominant. There was mention of tooth extraction around March 11, and patient was given an antibiotic after the procedure. He was not told that there was any infection, and that the antibiotic was for prophylaxis. He developed a rash on the second day that he was taking the antibiotics, and after 4 days he stopped taking the medication because the rash got worse. He had an episode of fever during that time. After he stopped the antibiotic, the rash resolved and he did not have any further fever. He has not had any episode of sore throat, cough. No nausea or vomiting, no GI or any urinary complaints. He has not been confused. Patient has had multiple imaging studies done. MRI of the brain with and without contrast is unremarkable. Venogram showed some thrombosis in his sagittal sinus. Patient had a lumbar puncture done, and it showed 36 WBC, most of it lymphocytes on Tube #1. Glucose is normal and protein is elevated. His WBC is normal. Sedimentation rate is 2. Patient has been started on acyclovir. Infectious disease consultation has been requested to evaluate the patient for possible infection, focal cerebritis. Review of Systems Constitutional: DENIES: Fever, Chills, Night Sweats Eyes: DENIES: Eye pain Ears, nose, mouth, throat: DENIES: Nasal discharge, Oral lesions, Throat pain, Ear Pain, Sinus Pain, Toothache Respiratory: DENIES: Cough, Sputum production, Shortness of breath Cardiovascular: DENIES: Chest pain, Palpitations, Syncope Gastrointestinal: DENIES: Abdominal pain, Diarrhea, Nausea, Vomiting, Difficulty Swallowing Genitourinary: DENIES: Dysuria, Nocturia Musculoskeletal: DENIES: Joint pain, Muscle aches, Neck pain Integumentary: DENIES: Rash Neurologic: COMPLAINS OF: Localized weakness, Paresthesias, DENIES: Speech Problems Psychiatric: DENIES: Confusion, Hallucinations Past Family Social History Allergies: Coded Allergies: Penicillins (Verified Allergy, Mild, RASH, 04/02/17) Past Medical History Hx of cataracts Several nondisplaced fractures of the pelvis and left radial fracture in 2013 after a fall off of a ladder GERD Hyperlipidemia Past Surgical History Hx of cataract surgery Hx of varicose vein surgery bilaterally Tonsillectomy Active Ordered Medications Tylenol Acyclovir Vasotec Labetalol Keppra Ativan MOM Zofran Pravachol Restoril Family History Non-contributory Social History No smoking No ETOH abuse No illicit drug use Physical Exam Vital Signs Vital Signs Date Time Temp Pulse Resp B/P Pulse Ox O2 Delivery O2 Flow Rate FiO2 04/03/17 16:23 98.1 90 18 131/84 98 04/03/17 13:46 98.3 94 16 118/84 95 04/03/17 08:00 93 04/03/17 07:32 97.7 93 18 136/80 96 04/03/17 04:00 75 04/03/17 03:43 98.3 81 18 113/70 97 04/02/17 23:45 83 04/02/17 23:35 98.3 80 18 116/73 94 04/02/17 20:17 79 04/02/17 20:01 98.1 84 18 130/81 96 Physical Exam GENERAL: Patient is a well-nourished, well-developed male, awake and alert, not in respiratory distress. SKIN: Warm and dry. No generalized rash, no ecchymoses and no evidence of embolic lesions. HEAD: Atraumatic. Normocephalic. No temporal wasting, or tenderness. EYES: Perdido conjunctiva. No petechia or hemorrhage. Pupils equal, round and reactive to light. Extraocular movements full and intact. No scleral icterus. No injection or drainage. EARS, NOSE AND THROAT: Nose without bleeding or purulent nasal discharge. No sinus tenderness. Mucous membranes pink and moist. No oral lesions noted. No exudate. No oral thrush. NECK: Trachea midline. Supple and not tender, no meningeal signs . No nuchal rigidity CARDIOVASCULAR: Regular rate and rhythm. No murmurs, rubs or gallops heard RESPIRATORY: Clear to auscultation. Breath sounds equal bilaterally. No rales , wheezing or rhonchi ABDOMEN: Soft, non-tender, nondistended. Bowel sounds present and normoactive. No guarding. No rebound. No organomegaly. EXTREMITIES: No clubbing, cyanosis, or edema.No joint effusion, has good ROM. No calf tenderness. Well perfused and warm. NEUROLOGICAL: Awake and alert. Cranial nerves grossly intact. RUE motor strength is 3-4/5. LUE, BLE 5/5. PSYCHIATRIC: Normal affect, calm and cooperative. LINE: No evidence of infection Laboratory Laboratory Tests Test 04/03/17 04/03/17 07:20 13:05 White Blood Count 4.0 Red Blood Count 5.60 Hemoglobin 16.3 Hematocrit 49.7 Mean Corpuscular Volume 88.8 Mean Corpuscular Hemoglobin 29.1 Mean Corpuscular Hemoglobin 32.7 Concent Red Cell Distribution Width 13.7 Platelet Count 174 Mean Platelet Volume 9.7 Neutrophils (%) (Auto) 85.8 Lymphocytes (%) (Auto) 12.1 Monocytes (%) (Auto) 1.7 Eosinophils (%) (Auto) 0.2 Basophils (%) (Auto) 0.2 Neutrophils # (Auto) 3.5 Lymphocytes # (Auto) 0.5 Monocytes # (Auto) 0.1 Eosinophils # (Auto) 0.0 Basophils # (Auto) 0.0 CBC Comment DIFF FINAL Differential Comment Erythrocyte Sedimentation Rate 2 Sodium Level 138 Potassium Level 4.3 Chloride Level 106 Carbon Dioxide Level 23.3 Anion Gap 9 Blood Urea Nitrogen 11 Creatinine 0.87 Estimat Glomerular Filtration 91 Rate Random Glucose 111 Calcium Level 9.5 Triglycerides Level 49 Cholesterol Level 187 LDL Cholesterol 124 HDL Cholesterol 53.4 Cholesterol/HDL Ratio 3.50 Vitamin B12 Level 280 Folate 9.2 Free Thyroxine 1.15 Thyroid Stimulating Hormone 0.990 3rd Gen CSF Volume (Tube 1) 4.8 CSF Supernatant Color (tube 1) CLEAR CSF WBC (Tube 1) 36 CSF RBC (Tube 1) 704 CSF Volume (Tube 2) 7.0 CSF Supernatant Color (tube 2) CLEAR CSF Gross Blood (Tube 2) TRACE CSF Volume (Tube 3) 7.0 CSF Supernatant Color (tube 3) CLEAR CSF Gross Blood (Tube 3) 0 CSF Volume (Tube 4) 7.5 CSF Supernatant Color (tube 4) CLEAR CSF Neutrophils 7 CSF Lymphocytes 90 CSF Monocytes 3 CSF Glucose 71 CSF Lactic Acid 2.2 CSF Total Protein 61.3 Date/Time Procedure Status Source Growth 04/03/17 13:05 Gram Stain - Final Resulted Cerebral Spinal Fluid Lumbar Puncture 04/03/17 13:05 CSF Culture Resulted Cerebral Spinal Fluid Lumbar Puncture Pending 04/03/17 13:05 Fungal Smear Received Cerebral Spinal Fluid Lumbar Puncture Pending 04/03/17 13:05 Fungal Culture Received Cerebral Spinal Fluid Lumbar Puncture Pending 04/03/17 13:05 Acid Fast Stain Received Cerebral Spinal Fluid Lumbar Puncture Pending 04/03/17 13:05 Mycobacterial Culture Received Cerebral Spinal Fluid Lumbar Puncture Pending Result Diagram: 04/03/17 0720 04/03/17 0720 Imaging Last Impressions Thoracic Spine MRI 04/03/17 1029 Signed Impressions: Service Date/Time: Monday, April 03, 2017 11:41 - CONCLUSION: 1. Mild degenerative changes without compression fracture. 2. Disc bulges/protrusions at T5-6, T6-7 and T9-10 levels without canal stenosis. Keegan Dodd MD Cervical Spine MRI 04/03/17 1029 Signed Impressions: Service Date/Time: Monday, April 03, 2017 11:41 - CONCLUSION: There is some motion artifact but no definite enhancement seen. Please refer to MRI of the cervical spine for further detail on 04-02-17. Keegan Dodd MD Brain MRI 04/03/17 1029 Signed Impressions: Service Date/Time: Monday, April 03, 2017 11:41 - CONCLUSION: Unremarkable MRI of the brain. No enhancement.. Keegan Dodd MD Head/Brain Mag Res Venography 04/03/17 0000 Signed Impressions: Service Date/Time: Monday, April 03, 2017 11:41 - CONCLUSION: 1. Abnormal examination demonstrating thrombosis of the anterior and mid portions of the superior sagittal sinus. The posterior portions of the sagittal sinus are patent. The transverse sinuses, straight sinus and internal cerebral veins are patent. Dipesh Zamora MD Chest X-Ray 04/02/17 1531 Signed Impressions: Service Date/Time: Sunday, April 02, 2017 15:55 - CONCLUSION: 1. No acute cardiopulmonary findings. Dipesh Zamora MD Head Magnetic Resonance Angiography 04/02/17 0000 Signed Impressions: Service Date/Time: Sunday, April 02, 2017 16:05 - CONCLUSION: 1. Negative examination. Dipesh Zamora MD Head CT 04/02/17 0000 Signed Impressions: Service Date/Time: Sunday, April 02, 2017 14:15 - CONCLUSION: Negative noncontrast CT. Eliu Hartmann MD Carotid Artery Ultrasound 04/02/17 0000 Signed Impressions: Service Date/Time: Sunday, April 02, 2017 20:18 - CONCLUSION: Negative. No significant plaque or narrowing of either carotid. Ramsey Swartz MD Assessment and Plan Assessment and Plan IMPRESSION RUE weakness etiology, ?early stroke Available data, and imaging studies not supportive of IMAGING ANALYST infection Sagittal sinus thrombosis, etiology? - infection can cause htis but most patients show more S/Sxs and systemic evidence of infection - his ESR is only 2 Cervical spinal stenosis RECOMMENDATION I have asked lab to do cell count of tube #4 He is on Acyclovir started by neurology Heme to eval for the sinus thrombosis Follow work-up results Monitor progress Thank you for this consultation Discussed Condition With Explained all findings to patient and family as far as in reference to infection Answered all their questions Brenna Yee MD Apr 03, 2017 16:46
[2017-04-03 17:27] LABS: WBC TUBE #4 28 /MM3 (0-10)
[2017-04-03 17:35] LABS: CSF LYMPHOCYTES 96 %; CSF MONOCYTES 3 %; CSF NEUTROPHILS 1 %
[2017-04-03 17:37] LABS: FREE T4 1.19 NG/DL (0.76-1.46)
[2017-04-03 17:40] LABS: RHEUMATOID FACTOR TRIGGER LESS THAN 10.0 IU/ML (0.0-14.9)
--- NOTE | 2017-04-03 18:26 | HHI.PR ---
Subjective Remarks Pt c/o continued RUE weakness and paresthesias. Objective Vitals Vital Signs Date Time Temp Pulse Resp B/P Pulse Ox O2 Delivery O2 Flow Rate FiO2 04/03/17 16:23 98.1 90 18 131/84 98 04/03/17 13:46 98.3 94 16 118/84 95 04/03/17 08:00 93 04/03/17 07:32 97.7 93 18 136/80 96 04/03/17 04:00 75 04/03/17 03:43 98.3 81 18 113/70 97 04/02/17 23:45 83 04/02/17 23:35 98.3 80 18 116/73 94 04/02/17 20:17 79 04/02/17 20:01 98.1 84 18 130/81 96 Result Diagram: 04/03/1771904/03/1720 Imaging Last Impressions Thoracic Spine MRI 04/03/17 1029 Signed Impressions: Service Date/Time: Monday, April 03, 2017 11:41 - CONCLUSION: 1. Mild degenerative changes without compression fracture. 2. Disc bulges/protrusions at T5-6, T6-7 and T9-10 levels without canal stenosis. Keegan Dodd MD Cervical Spine MRI 04/03/17 1029 Signed Impressions: Service Date/Time: Monday, April 03, 2017 11:41 - CONCLUSION: There is some motion artifact but no definite enhancement seen. Please refer to MRI of the cervical spine for further detail on 04-02-17. Keegan Dodd MD Brain MRI 04/03/17 1029 Signed Impressions: Service Date/Time: Monday, April 03, 2017 11:41 - CONCLUSION: Unremarkable MRI of the brain. No enhancement.. Keegan Dodd MD Head/Brain Mag Res Venography 04/03/17 0000 Signed Impressions: Service Date/Time: Monday, April 03, 2017 11:41 - CONCLUSION: 1. Abnormal examination demonstrating thrombosis of the anterior and mid portions of the superior sagittal sinus. The posterior portions of the sagittal sinus are patent. The transverse sinuses, straight sinus and internal cerebral veins are patent. Dipesh Zamora MD Chest X-Ray 04/02/17 1531 Signed Impressions: Service Date/Time: Sunday, April 02, 2017 15:55 - CONCLUSION: 1. No acute cardiopulmonary findings. Dipesh Zamora MD Head Magnetic Resonance Angiography 04/02/17 0000 Signed Impressions: Service Date/Time: Sunday, April 02, 2017 16:05 - CONCLUSION: 1. Negative examination. Dipesh Zamora MD Head CT 04/02/17 0000 Signed Impressions: Service Date/Time: Sunday, April 02, 2017 14:15 - CONCLUSION: Negative noncontrast CT. Eliu Hartmann MD Carotid Artery Ultrasound 04/02/17 0000 Signed Impressions: Service Date/Time: Sunday, April 02, 2017 20:18 - CONCLUSION: Negative. No significant plaque or narrowing of either carotid. Ramsey Swartz MD Objective Remarks GENERAL: This is a well-nourished, well-developed patient, in no apparent distress. CARDIOVASCULAR: Regular rate and rhythm without murmurs, gallops, or rubs. RESPIRATORY: Clear to auscultation. Breath sounds equal bilaterally. No wheezes , rales, or rhonchi. GASTROINTESTINAL: Abdomen soft, non-tender, nondistended. Normal active bowel sounds MUSCULOSKELETAL: Extremities without clubbing, cyanosis, or edema. NEURO: Alert & Oriented x4 to person, place, time, situation. Moves all ext x4 A/P Problem List: (1) Right arm weakness Status: Acute Plan: - comgmt with Neurology, Neurosurgery, ID - Pt is a 56 y/o male with hx of previous multiple nondisplaced fractures of the pelvis and left radial fracture in 2013 after a fall off of a ladder - Pt presented to the ED with RUE paresthesias and weakness - Head CT (04/02) --> Negative - MRI/MRA Brain (04/02) --> Negative - Carotid US (04/02/17) --> No hemodynamically significant stenosis - 2D echo (04/02/17) --> EF 50-55% - MRI Cervical spine (04/02) --> - Central canal stenosis at C5-6 secondary to diffuse disc bulge with obliteration of the CSF surrounding the cord and mild flattening. - Broad base disc bulge at C4-5 greatest in left parasagittal region which reached the anterior cord with slight flattening and turning. There is no abnormal signal. - Moderate to severe narrowing of the neural foramina bilaterally at the C4- 5 and C5-6 levels as well as on the left at C2-3. - Milder disc bulge at C3-4 with no mass effect upon the cord. - Diffuse degenerative disc change. - possible cerebritis - pt found to have sagittal sinus thrombosis - keppra - IV acylovir per Neurology - NO indication for surgery per Neurosurgery - ativan seizure activity - DVT prophylaxis with SCDs (2) Right upper extremity numbness Status: Acute Plan: - See above. (3) Occlusion of sagittal venous sinus Status: Acute Plan: - pt had LP today - case d/w Hematology, Dr. Flores. He will consult. - Dr. Flores to order anticoagulation to start 04/04/17 Jude Hutchison DO Apr 03, 2017 18:26
--- NOTE | 2017-04-03 19:32 | MB ---
cc: JACIEL LOMELI MD DATE OF CONSULTATION 04/03/17 DATE OF 1960. REASON FOR CONSULTATION Patient with a superior sagittal sinus thrombosis HISTORY OF PRESENT ILLNESS This is a 56-year-old male who has a past medical history of hyperlipidemia, gastroesophageal reflux disease, history of nondisplaced fracture of the pelvis and left radial fracture after she fell off a ladder in 2013 and history of cataracts who presents to the emergency department with weakness in the right upper extremity. He states that he woke up yesterday and felt that her right upper extremity was asleep. She had a difficult time moving her extremity. He slept the entire day and experienced some improvement but had again worsening of the symptoms. He was brought to the emergency room and underwent extensive imaging including CT scan of the head which was negative. He had an MRI of the head which was negative. A brain venography was obtained and this showed a thrombosis of the anterior and the posterior portion of the sagittal sinus was patent. The patient was seen by both neurology and neurosurgery. She has undergone LP. The results of the LP are pending. Due to findings of superior sagittal sinus, hematology has been consulted recommendations for anticoagulation. The patient has no past medical history of any type of thrombosis. No DVTs. No pulmonary emboli. She denies having any family history of blood disorder. The patient is currently on acyclovir. REVIEW OF SYSTEMS A comprehensive 14-point review of systems was completed which is negative except as described in the HPI. PAST MEDICAL HISTORY 1. History of cataracts 2. Nondisplaced fracture of the pelvis and left radial fracture in 2013 after a fall off a ladder 3. Gastroesophageal reflux disease, 4. Hyperlipidemia. PAST SURGICAL HISTORY 1. History of cataract surgery 2. History of varicose vein surgery. MEDICATIONS 1. Keppra 500 mg IV q.12 h. 2. Acyclovir 800 mg IV q. 8 hours. 3. Pravachol 40 mg p.o. q.h.s. 4. Lorazepam 1 mg IV q.6 h p.r.n. 5. Tylenol 650 p.o. q.4 h p.r.n. 6. Zofran 4 mg IV q.6 h p.r.n. 7. Restoril 15 mg p.o. q.h.s. p.r.n. 8. Milk of magnesia p.r.n. 9. Labetalol 10 mg IV q.2 h. FAMILY HISTORY Reviewed and is noncontributory to this admission. SOCIAL HISTORY She does not drink alcohol. No illicit drug use. No tobacco abuse. PHYSICAL EXAMINATION VITAL SIGNS: Blood pressure is 131/84, pulse in the 90s, temperature is 98.1, O2 sats are 98% on room air. GENERAL: Well-developed, well-nourished female in no apparent distress. HEENT: Pupils are equal, round, reactive to light. EOMI. No oral thrush. No oral lesions. NECK: Supple. No JVD, no bruits. No lymphadenopathy. CHEST: Clear to auscultation bilaterally. CARDIAC: S1-S2 regular rate and rhythm. ABDOMEN: Soft, nontender, nondistended. Bowel sounds are present. EXTREMITIES: Without any edema, erythema or cyanosis. SKIN: Without any petechiae, lesion or bruises. 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 Speech is normal. She is alert and oriented. LABORATORY DATA WBC 4, hemoglobin is 15.3, platelet count is 174. Serum chemistries include sodium 138, potassium 4.3, chloride 106, CO2 23.3, anion gap nine, BUN 11, creatinine 0.87, calcium 9.5, CRP 0.47, folate 9.2, vitamin B12 280, free T4 1.15, TSH is 0.99. UDS was negative. TIGIST screen pending. Rheumatoid factor negative. IMAGING STUDIES Reviewed in the EMR. ASSESSMENT/PLAN This is a 56-year-old female who presents to the emergency room with stroke-like symptoms with right upper extremity weakness. A brain venogram revealed sagittal superior sinus thrombosis. I have been consulted to make further recommendations. 1. Superior sagittal sinus thrombosis. He has no past medical history of known prothrombotic conditions either genetic or acquired. There is no past medical history of autoimmune phenomena. He has not had any trauma. He will need anticoagulation with low molecular weight heparin. I agree with starting this patient on heparin GTT. He will need anticoagulation indefinitely. We need to rule out any underlying precipitant for this thrombosis. There is no apparent reason to believe that he has any underlying malignancy. Infectious disease has been consulted to rule out any underlying infection. I will obtain a hypercoagulable workup. This will not change our management as he will need anticoagulation indefinitely. The patient had lumbar puncture a few hours ago. I would wait at least 8-12 hours before starting anticoagulation. I have discussed this case with Dr. Hutchison. Thank you for allowing me to participate in the care of this patient. I will continue to follow this patient along. MD KELBY Sanford/ /5:50 PM /7:09 PM [email or web address]
[2017-04-03] MEDS: PRAVASTATIN SOD 40 MG TAB PO SCH (20:14)
--- NOTE | 2017-04-03 20:16 | MG ---
cc: YAYA SYKES Lab No: [id number] Date: 04/03/17 Age: 56 Sex: M Race: Left cerebral abnormality, sagittal sinus thrombosis. The recording shows diffuse beta rhythms. Do not see anything over the left hemisphere indicating any seizure activity. Some diffuse beta rhythms are seen which look like sleep activity. Photic stimulation was performed without significant posterior driving. Hyperventilation not performed. IMPRESSION A generally unremarkable EEG. There is no left hemisphere seizure activity. MD BRYAN KochM/CATHRYN /7:49 PM /8:06 PM
--- NOTE | 2017-04-03 21:47 | RADRPT ---
EXAM DATE/TIME: 04/03/2017 21:13 [facility] COMPARISON: CT BRAIN W/O CONTRAST, April 02, 2017, 14:15. MRI BRAIN W/O CONTRAST, April 02, 2017, 16:05. MRI BRAIN W & W/O CONTRAST, April 03, 2017, 11:41. INDICATIONS : Right sided weakness. Cerebritis. MEDICAL HISTORY : None. SURGICAL HISTORY : Tonsillectomy. ENCOUNTER: Initial ACUITY: 2 day PAIN SCORE: 0/10 LOCATION: cranial TECHNIQUE: Multiplanar, multisequence MRI of the brain was performed without contrast. FINDINGS: There has been a change since the prior MRI from one day ago. There are areas of abnormal signal on the FLAIR sequence and diffusion portion involving the right frontal lobe not present previously with worsening of the left parietal signal since the prior exam. There is question of areas of acute infarction also developing in the left frontal lobe as seen on the diffusion map. There are also area s of right signal on the FLAIR sequence within the sulci of bilateral parietal lobes and parts of the right frontal lobe possibly due to subarachnoid hemorrhage. Patient has superior sagittal vein throm bosis identified on the patient's prior examinations as well. There is no evidence for any mass effec t. CONCLUSION: 1. Superior sagittal vein thrombosis identified previously. 2. Abnormal signal within the sulci bilaterally on FLAIR sequence not present previously suspicious f or subarachnoid hemorrhage. 3. New areas of acute infarction as developed in right frontal lobe, possibly left frontal lobe as we ll and worsening of left parietal lobe areas of infarction. Zuhair Chester MD on April 03, 2017 at 21:40 Board Certified Radiologist. This report was verified electronically.
[2017-04-04] VITALS (7 sets, daily range): BP systolic 100–118; BP diastolic 62–76; PULSE 56–80; RESP 18–20; TEMP 98.3–98.6; O2SAT 95–96
[2017-04-04] MEDS ORDERED: ACYCLOVIR INJ 800 MG in SODIUM CHLORIDE 0.9% INJ 150 ML IV SCH ×2
[2017-04-04] MEDS: levETIRAcetam INJ 500 MG in SODIUM CHLORIDE 0.9% INJ 100 ML IV SCH ×2 (03:05→13:23)
--- NOTE | 2017-04-04 04:26 | RADRPT ---
EXAM DATE/TIME: 04/04/2017 04:06 [facility] COMPARISON: CT BRAIN W/O CONTRAST, April 02, 2017, 14:15. INDICATIONS : Altered mental status, evaluate for bleed. RADIATION DOSE: 34.47 CTDIvol (mGy) MEDICAL HISTORY : None SURGICAL HISTORY : Tonsillectomy. ENCOUNTER: Subsequent ACUITY: 2 days PAIN SCALE: 0/10 LOCATION: cranial TECHNIQUE: Multiple contiguous axial images were obtained of the head. Using automated exposure control and adj ustment of the mA and/or kV according to patient size, radiation dose was kept as low as reasonably a chievable to obtain optimal diagnostic quality images. DICOM format image data is available electro nically for review and comparison. FINDINGS: CEREBRUM: The ventricles are normal for age. No evidence of midline shift, mass lesion, hemorrhage or acute in farction. No extra-axial fluid collections are seen. POSTERIOR FOSSA: The cerebellum and brainstem are intact. The 4th ventricle is midline. The cerebellopontine angle i s unremarkable. EXTRACRANIAL: The visualized portion of the orbits is intact. SKULL: The calvaria is intact. No evidence of skull fracture. CONCLUSION: Negative exam. Augie Wong MD on April 04, 2017 at 4:23 Board Certified Radiologist. This report was verified electronically.
[2017-04-04] MEDS ORDERED: PROTAMINE SULFATE 50 MG/5 ML VIAL IV PRN (04:30)
[2017-04-04 04:35] LABS: BICARBONATE 23.7 MEQ/L (21.0-32.0); POTASSIUM 3.8 MEQ/L (3.5-5.1)
--- NOTE | 2017-04-04 04:43 | HHI.PR ---
Subjective Remarks mri repeat shows some slight sah not seen on ct but some slight enlargement of left cortical abn and now a new larger r frontal cortical edema and venous infarct clinically a little bit slurred speech now over phone but nurse tells me moving legs fine and left arm ok still weak but able to move rue and not fisted i dw pt and over phone consented him to start iv heparin and he agreed to go ahead and start at 5 am today 16 hours after LP the risk of bleeding into low back and paralysis of ble was explained to him as the risk of bleeding into brain and some blood already there I notified him of that but if we do not start the heparin now we risk further infarcts into brain and even coma he agrees as such to start heparin with these risks and benefit explained i was hoping to wait 24 hours after LP as he told me late last noc that he has had rue sx since last wednesday figuring this clot has been present since then, but with the drastic change in the mri over last 24 hours i cannot wait any longer Objective Vital Signs Date Time Temp Pulse Resp B/P Pulse Ox O2 Delivery O2 Flow Rate FiO2 04/04/17 00:00 62 04/04/17 00:00 98.6 60 20 118/76 96 04/03/17 23:00 68 04/03/17 20:20 97.5 82 18 127/70 95 04/03/17 20:00 78 04/03/17 18:33 84 04/03/17 16:23 98.1 90 18 131/84 98 04/03/17 13:46 98.3 94 16 118/84 95 04/03/17 08:00 93 04/03/17 07:32 97.7 93 18 136/80 96 I/O 04/03/17 04/03/17 04/03/17 04/04/17 04/04/17 04/04/17 07:00 15:00 23:00 07:00 15:00 23:00 Intake Total 250 ml Balance 250 ml Intake IV Total 250 ml # Voids 3 # Bowel Movements 0 Result Diagram: 04/03/1720 04/04/17 0344 Masoud Acosta MD Apr 04, 2017 04:42
[2017-04-04 05:13] LABS: APTT (PATIENT) 26.2 SEC (24.3-30.1)
[2017-04-04] MEDS: SODIUM CHLOR 0.9% 1000 ML INJ 1,000 ML IV SCH ×2 (05:27→18:03)
[2017-04-04 05:37] LABS: HEMATOCRIT 42.2 % (39.0-51.0); MEAN CELL VOLUME 87.1 FL (80.0-100.0); MEAN CORPUSCULAR HEMOGLOBIN 29.7 PG (27.0-34.0); MEAN CORPUSCULAR HGB CONC 34.1 % (32.0-36.0); PLATELET COUNT 192 TH/MM3 (150-450); RED BLOOD COUNT 4.85 MIL/MM3 (4.50-5.90); RED CELL DISTRIBUTION WIDTH 13.8 % (11.6-17.2); REVIEW FLAG FINAL; WHITE BLOOD COUNT 9.3 TH/MM3 (4.0-11.0)
[2017-04-04] MEDS: HEPARIN-D5W 25,000 U/250 ML 250 ML IV SCH (05:52)
[2017-04-04] MEDS: SODIUM CHLORIDE 0.9% FLUSH 10 ML FLUSH IV FLUSH SCH ×2 (09:00→20:40)
[2017-04-04 11:56] LABS: APTT (PATIENT) 32.9 SEC (24.3-30.1)
--- NOTE | 2017-04-04 12:18 | RADRPT ---
EXAM DATE/TIME: 04/04/2017 11:23 [place] COMPARISON: No previous studies available for comparison. INDICATIONS : Right lower extremity edema. MEDICAL HISTORY : Gastroesophageal reflux disease. Vericose veins. Paresthesia. SURGICAL HISTORY : Tonsillectomy. Cataract surgery. Right lens implant. Gum surgery. Varicous vein surgery. ENCOUNTER: Initial ACUITY: 4 - 6 months PAIN SCORE: 5/10 LOCATION: Bilateral legs. TECHNIQUE: Venous ultrasound of the left and right leg was performed from the inguinal ligament to the proximal calf. Real-time, color Doppler and spectral tracing, compression and augmentation techniques were us ed. FINDINGS: RIGHT LEG: There is occlusive thrombus in the right femoral vein. There is nonocclusive thrombus within the popl iteal peroneal and greater saphenous veins. No thrombus within the common femoral vein or posterior t ibial veins. LEFT LEG: There is nonocclusive thrombus within the femoral vein, popliteal vein and peroneal vein. CONCLUSION: 1. Occlusive thrombus in the right femoral vein. 2. Nonocclusive thrombus left leg. Keegan Dodd MD on April 04, 2017 at 12:15 Board Certified Radiologist. This report was verified electronically.
--- NOTE | 2017-04-04 14:32 | PD.ONC.PN ---
Subjective Subjective Remarks Afebrile overnight. Patient resting comfortably in room in nad. Daughter at bedside. Heparin gtt started at 5AM this morning. Patient seen at 9AM, late entry due to meditech downtime. Objective Data Date Time Temp Pulse Resp B/P (MAP) Pulse Ox O2 Delivery O2 Flow Rate FiO2 04/04/17 07:23 95 Nasal Cannula 2.00 04/04/17 06:00 62 04/04/17 05:00 96 Nasal Cannula 3.00 04/04/17 04:00 58 04/04/17 04:00 98.3 60 20 100/62 (75) 04/04/17 02:00 56 04/04/17 00:00 62 04/04/17 00:00 98.6 60 20 118/76 (90) 96 04/03/17 23:00 68 04/03/17 20:20 97.5 82 18 127/70 (89) 95 04/03/17 20:00 78 04/03/17 18:33 84 04/03/17 16:23 98.1 90 18 131/84 (100) 98 04/04/17 04/04/17 04/04/17 07:00 15:00 23:00 Intake Total 341 ml 105 ml Balance 341 ml 105 ml Result Diagram: 04/04/17 0444 04/04/17 0344 Laboratory Results Laboratory Tests Test 04/03/17 16:20 04/03/17 19:50 04/03/17 23:00 04/04/17 03:44 C-Reactive Protein 0.47 MG/DL Free Thyroxine 1.19 NG/DL Rheumatoid Factor Screen NEGATIVE Rheumatoid Factor Titer IU/ML Ammonia 18 MCMOL/L Nasal Screen MRSA (PCR) MRSA NOT DETECTED Blood Urea Nitrogen 16 MG/DL Creatinine 0.84 MG/DL Random Glucose 93 MG/DL Calcium Level 9.1 MG/DL Sodium Level 140 MEQ/L Potassium Level 3.8 MEQ/L Chloride Level 107 MEQ/L Carbon Dioxide Level 23.7 MEQ/L Anion Gap 9 MEQ/L Estimat Glomerular Filtration Rate 95 ML/MIN Test 04/04/17 04:44 04/04/17 11:11 White Blood Count 9.3 TH/MM3 Red Blood Count 4.85 MIL/MM3 Hemoglobin 14.4 GM/DL Hematocrit 42.2 % Mean Corpuscular Volume 87.1 FL Mean Corpuscular Hemoglobin 29.7 PG Mean Corpuscular Hemoglobin Concent 34.1 % Red Cell Distribution Width 13.8 % Platelet Count 192 TH/MM3 Mean Platelet Volume 8.8 FL Prothrombin Time 11.0 SEC Prothromb Time International Ratio 1.0 RATIO Activated Partial Thromboplast Time 26.2 SEC 32.9 SEC Culture Results Microbiology Date/Time Source Procedure Growth Status 04/03/17 16:20 Blood Peripheral Aerobic Blood Culture - Preliminary NO GROWTH IN 1 DAY Resulted 04/03/17 16:20 Blood Peripheral Anaerobic Blood Culture - Preliminary NO GROWTH IN 1 DAY Resulted 04/03/17 16:20 Blood Peripheral Aerobic Blood Culture - Preliminary NO GROWTH IN 1 DAY Resulted 04/03/17 16:20 Blood Peripheral Anaerobic Blood Culture - Preliminary NO GROWTH IN 1 DAY Resulted 04/03/17 13:05 Cerebral Spinal Fluid Lumbar Puncture Fungal Smear Pending Received 04/03/17 13:05 Cerebral Spinal Fluid Lumbar Puncture Fungal Culture Pending Received 04/03/17 13:05 Cerebral Spinal Fluid Lumbar Puncture Acid Fast Stain Pending Received 04/03/17 13:05 Cerebral Spinal Fluid Lumbar Puncture Mycobacterial Culture Pending Received 04/03/17 13:05 Cerebral Spinal Fluid Lumbar Puncture Gram Stain - Final Resulted 04/03/17 13:05 Cerebral Spinal Fluid Lumbar Puncture CSF Culture - Preliminary NO GROWTH IN 24 HOURS. Resulted Imaging Studies Last Impressions Head CT 04/04/17 0000 Signed Impressions: Service Date/Time: Tuesday, April 04, 2017 04:06 - CONCLUSION: Negative exam. Augie Wong MD Thoracic Spine MRI 04/03/17 1029 Signed Impressions: Service Date/Time: Monday, April 03, 2017 11:41 - CONCLUSION: 1. Mild degenerative changes without compression fracture. 2. Disc bulges/protrusions at T5-6, T6-7 and T9-10 levels without canal stenosis. Keegan Dodd MD Cervical Spine MRI 04/03/17 1029 Signed Impressions: Service Date/Time: Monday, April 03, 2017 11:41 - CONCLUSION: There is some motion artifact but no definite enhancement seen. Please refer to MRI of the cervical spine for further detail on 04-02-17. Keegan Dodd MD Brain MRI 04/03/17 1029 Signed Impressions: Service Date/Time: Monday, April 03, 2017 11:41 - CONCLUSION: Unremarkable MRI of the brain. No enhancement.. Keegan Dodd MD Head/Brain Mag Res Venography 04/03/17 0000 Signed Impressions: Service Date/Time: Monday, April 03, 2017 11:41 - CONCLUSION: 1. Abnormal examination demonstrating thrombosis of the anterior and mid portions of the superior sagittal sinus. The posterior portions of the sagittal sinus are patent. The transverse sinuses, straight sinus and internal cerebral veins are patent. Dipesh Zamora MD Chest X-Ray 04/02/17 1531 Signed Impressions: Service Date/Time: Sunday, April 02, 2017 15:55 - CONCLUSION: 1. No acute cardiopulmonary findings. Dipesh Zamora MD Head Magnetic Resonance Angiography 04/02/17 0000 Signed Impressions: Service Date/Time: Sunday, April 02, 2017 16:05 - CONCLUSION: 1. Negative examination. Dipesh Zamora MD Carotid Artery Ultrasound 04/02/17 0000 Signed Impressions: Service Date/Time: Sunday, April 02, 2017 20:18 - CONCLUSION: Negative. No significant plaque or narrowing of either carotid. Ramsey Swartz MD Administered Medications Medications (Trade) Dose Ordered Sig/[place] Route PRN Reason Start Time Stop Time Status Last Admin Dose Admin Sodium Chloride (NS Flush) 2 ml UNSCH PRN IV FLUSH FLUSH AFTER USING IV ACCESS 04/02/17 15:45 04/03/17 05:29 Sodium Chloride (NS Flush) 2 ml BID IV FLUSH 04/02/17 21:00 04/04/17 09:00 Pravastatin Sodium (Pravachol) 40 mg HS PO 04/02/17 21:00 04/03/17 20:14 Lorazepam (Ativan Inj) 1 mg Q6H PRN IV PUSH seizure activity 04/02/17 19:15 04/03/17 11:06 Levetriacetam 500 mg/Sodium Chloride 105 ml @ 420 mls/hr Q12H IV 04/04/17 03:00 04/04/17 13:23 Heparin Sodium/ Dextrose 250 ml @ 0 mls/hr TITRATE IV 04/04/17 05:00 04/04/17 05:52 Sodium Chloride 1,000 ml @ 75 mls/hr [id number] IV 04/04/17 04:49 04/04/17 05:27 Objective Remarks GENERAL: Middle aged male supine in bed in nad. SKIN: Warm and dry. HEAD: Normocephalic. EYES: No injection or drainage. NECK: Supple, trachea midline. CARDIOVASCULAR: Regular rate and rhythm RESPIRATORY: anterior robles clear. on 2L o2 GASTROINTESTINAL: Abdomen soft, non-tender, nondistended. EXTREMITIES: No cyanosis NEUROLOGICAL: awake and alert. normal speech. able to move extremities. Assessment/Plan Problem List: (1) Occlusion of sagittal venous sinus ICD Codes: G08 - Intracranial and intraspinal phlebitis and thrombophlebitis Status: Acute Plan: --currently on heparin-->Coumadin --will need lifetime anticoagulation. --hypercoag w/u pending --LE U/S showed DVT History: --presented with weakness in the right upper extremity x 1 day. brain venography was obtained and this showed a thrombosis of the anterior and the posterior portion of the sagittal sinus was patent. -- no past medical history of any type of thrombosis. (2) DVT, bilateral lower limbs ICD Codes: I82.403 - Acute embolism and thrombosis of unspecified deep veins of lower extremity, bilateral Plan: --on heparin-->coumadin U/S, lower extremities showed bilateral lower extremity DVT Assessment 56y/o male admitted with superior sagittal sinus thrombosis history of hyperlipidemia, gastroesophageal reflux disease, history of nondisplaced fracture of the pelvis and left radial fracture after he fell off a ladder in 2013 and history of cataracts Plan 1. continue heparin gtt. monitor for bleeding 2. await hypercoagulable workup 3. fax face sheet to new patient referrals for follow up once discharged Attending Statement The exam, history, and the medical decision-making described in the above note were completed with the assistance of the mid-level provider. I reviewed and agree with the findings presented. I attest that I had a [id number] encounter with the patient on the same day, and personally performed and documented my assessment and findings in the medical record continue heparin GTT will need to be transitioned to Coumadin--probably tomorrow will need indefinite AC Hypercoag w/u pending Chelsie Alaniz Apr 04, 2017 14:32 Romaine Flores MD Apr 04, 2017 17:31
[2017-04-04] MEDS ORDERED: WARFARIN SOD 7.5 MG TAB PO SCH (16:00)
[2017-04-04] MEDS ORDERED: WARFARIN SOD 5 MG TAB PO SCH (16:00)
--- NOTE | 2017-04-04 16:19 | HM ---
Date Performed: 04/02/2017 Time Performed: 19:46:00 HOOKUP DATE: 04/02/17 07:46:00 PM Fri ANALYSIS START TIME: 04/02/2017 7:51:00 PM ANALYSIS END TIME: 04/03/2017 7:55:00 PM PATIENT AGE: 56 PATIENT HEIGHT: 69 PATIENT WEIGHT: 176 DRUG LIST: ROOM H-87 PATIENT DIAGNOSIS: BRAIN BLEED/CLOT TEST NARRATIVE: The patient's average heart rate was 85 BPM. Heart rates greater than 120 B PM were noted 1% of the time. No episodes of bradycardia were noted. No pauses exceeding 2.0 sec onds were noted. 14 ventricular ectopics, which represented < 1% of the total beat count, were no lanette. The highest ventricular ectopic frequency occurred from 08:00 AM to 09:00 AM Sat. During this time 7 VE(s) occurred. Ventricular ectopics were observed as 14 isolated beat(s) only. No couplets or runs were noted. 8 supraventricular ectopics, which represented < 1% of the total beat count, were noted. The highest supraventricular ectopic frequency occurred from 12:00 AM to 01:00 AM Sat. During this time 5 SVE(s) occurred. No episodes of ST depression (defined as -1.0 mm or more) wer e noted in channel 1. Multiple episodes of ST depression (defined as -1.0 mm or more) were noted in channel 2. The maximum depression of -1.9 mm occurred at 03:01:16 PM Sat. No episodes of ST depres christy (defined as -1.0 mm or more) were noted in channel 3. NO DIARY ENTRIES WERE REPORTED BY THE SUE ENT MONITOR WAS REMOVED BY MRI AND REAPPLIED @ 11:03 AM TEST INTERPRETATION: Very little atrial and ventricular is present. No heart block is present. T here is one five-beat run of PACs with an average rate of 141, only very rare other PACs are present. There is one period where patient has sinus tachycardia at 8.21am maximally at 164, but this seems t o speed up gradually and slow down gradually. This does not appear to be a paroxysmal ectopic rhythm but rather sinus tachycardia. Overall, this is a benign appearing holter monitor with very little atr ial or ventricular ectopy, and no heart block. Signed by : Tobias Hickey
--- NOTE | 2017-04-04 17:38 | HHI.PR ---
Subjective Remarks strength at RUE improving. Objective Vitals Vital Signs Date Time Temp Pulse Resp B/P (MAP) Pulse Ox O2 Delivery O2 Flow Rate FiO2 04/04/17 07:23 95 Nasal Cannula 2.00 04/04/17 06:00 62 04/04/17 05:00 96 Nasal Cannula 3.00 04/04/17 04:00 58 04/04/17 04:00 98.3 60 20 100/62 (75) 04/04/17 02:00 56 04/04/17 00:00 62 04/04/17 00:00 98.6 60 20 118/76 (90) 96 04/03/17 23:00 68 04/03/17 20:20 97.5 82 18 127/70 (89) 95 04/03/17 20:00 78 04/03/17 18:33 84 04/04/17 04/04/17 04/05/17 15:00 23:00 07:00 Intake Total 105 ml Balance 105 ml Intake IV Total 105 ml Result Diagram: 04/04/17 0444 04/04/17 0344 Imaging Last Impressions Head CT 04/04/17 0000 Signed Impressions: Service Date/Time: Tuesday, April 04, 2017 04:06 - CONCLUSION: Negative exam. Augie Wong MD Thoracic Spine MRI 04/03/17 1029 Signed Impressions: Service Date/Time: Monday, April 03, 2017 11:41 - CONCLUSION: 1. Mild degenerative changes without compression fracture. 2. Disc bulges/protrusions at T5-6, T6-7 and T9-10 levels without canal stenosis. Keegan Dodd MD Cervical Spine MRI 04/03/17 1029 Signed Impressions: Service Date/Time: Monday, April 03, 2017 11:41 - CONCLUSION: There is some motion artifact but no definite enhancement seen. Please refer to MRI of the cervical spine for further detail on 04-02-17. Keegan Dodd MD Brain MRI 04/03/17 1029 Signed Impressions: Service Date/Time: Monday, April 03, 2017 11:41 - CONCLUSION: Unremarkable MRI of the brain. No enhancement.. Keegan Dodd MD Head/Brain Mag Res Venography 04/03/17 0000 Signed Impressions: Service Date/Time: Monday, April 03, 2017 11:41 - CONCLUSION: 1. Abnormal examination demonstrating thrombosis of the anterior and mid portions of the superior sagittal sinus. The posterior portions of the sagittal sinus are patent. The transverse sinuses, straight sinus and internal cerebral veins are patent. Dipesh Zamora MD Chest X-Ray 04/02/17 1531 Signed Impressions: Service Date/Time: Sunday, April 02, 2017 15:55 - CONCLUSION: 1. No acute cardiopulmonary findings. Dipesh Zamora MD Head Magnetic Resonance Angiography 04/02/17 0000 Signed Impressions: Service Date/Time: Sunday, April 02, 2017 16:05 - CONCLUSION: 1. Negative examination. Dipesh Zamora MD Carotid Artery Ultrasound 04/02/17 0000 Signed Impressions: Service Date/Time: Sunday, April 02, 2017 20:18 - CONCLUSION: Negative. No significant plaque or narrowing of either carotid. Ramsey Swartz MD Objective Remarks GENERAL: This is a well-nourished, well-developed patient, in no apparent distress. CARDIOVASCULAR: Regular rate and rhythm without murmurs, gallops, or rubs. RESPIRATORY: Clear to auscultation. Breath sounds equal bilaterally. No wheezes , rales, or rhonchi. GASTROINTESTINAL: Abdomen soft, non-tender, nondistended. Normal active bowel sounds MUSCULOSKELETAL: Extremities without clubbing, cyanosis, or edema. NEURO: Alert & Oriented x4 to person, place, time, situation. Moves all ext x4 RUE - strength is much improved from yesterday, coordination of RUE is also much improved. A/P Problem List: (1) Right arm weakness ICD Codes: R29.898 - Other symptoms and signs involving the musculoskeletal system Status: Acute Plan: - comgmt with Neurology, Neurosurgery, ID - Pt is a 56 y/o male with hx of previous multiple nondisplaced fractures of the pelvis and left radial fracture in 2013 after a fall off of a ladder - Pt presented to the ED with RUE paresthesias and weakness - Head CT (04/02) --> Negative - MRI/MRA Brain (04/02) --> Negative - Carotid US (04/02/17) --> No hemodynamically significant stenosis - 2D echo (04/02/17) --> EF 50-55% - MRI Cervical spine (8/18) --> - Central canal stenosis at C5-6 secondary to diffuse disc bulge with obliteration of the CSF surrounding the cord and mild flattening. - Broad base disc bulge at C4-5 greatest in left parasagittal region which reached the anterior cord with slight flattening and turning. There is no abnormal signal. - Moderate to severe narrowing of the neural foramina bilaterally at the C4- 5 and C5-6 levels as well as on the left at C2-3. - Milder disc bulge at C3-4 with no mass effect upon the cord. - Diffuse degenerative disc change. - b/l US (04/04/17) --> B/L DVT - CT Brain (04/04/17) --> No acute findings - pt found to have sagittal sinus thrombosis - keppra - heparin/coumadin - CSF studies pending - INR in AM - NO indication for surgery per Neurosurgery - ativan seizure activity - DVT prophylaxis with heparin (2) Right upper extremity numbness ICD Codes: R20.2 - Paresthesia of skin Status: Acute Plan: - See above. (3) Occlusion of sagittal venous sinus ICD Codes: G08 - Intracranial and intraspinal phlebitis and thrombophlebitis Status: Acute Plan: - pt had LP (04/03/17) - CSF studies pending - case d/w Hematology, Dr. Flores (04/03/17) Jude Hutchison DO Apr 04, 2017 17:38
[2017-04-04 18:36] LABS: APTT (PATIENT) 37.4 SEC (24.3-30.1)
[2017-04-04] MEDS: PRAVASTATIN SOD 40 MG TAB PO SCH (20:40)
[2017-04-05] VITALS (13 sets, daily range): BP systolic 96–145; BP diastolic 55–85; PULSE 54–84; RESP 15–23; TEMP 97.7–98.4; O2SAT 96–98
[2017-04-05 01:38] LABS: BICARBONATE 23.5 MEQ/L (21.0-32.0); POTASSIUM 3.7 MEQ/L (3.5-5.1)
[2017-04-05 01:43] LABS: PROTHROMBIN TIME - PATIENT 10.8 SEC (9.8-11.6)
[2017-04-05] MEDS: levETIRAcetam INJ 500 MG in SODIUM CHLORIDE 0.9% INJ 100 ML IV SCH ×2 (02:42→15:29)
[2017-04-05] MEDS: HEPARIN-D5W 25,000 U/250 ML 250 ML IV SCH (04:07)
[2017-04-05] MEDS: SODIUM CHLOR 0.9% 1000 ML INJ 1,000 ML IV SCH ×2 (07:29→20:41)
--- NOTE | 2017-04-05 08:07 | HHI.PR ---
Subjective Remarks mri repeat shows some slight sah not seen on ct but some slight enlargement of left cortical abn and now a new larger r frontal cortical edema and venous infarct clinically a little bit slurred speech now over phone but nurse tells me moving legs fine and left arm ok still weak but able to move rue and not fisted i dw pt and over phone consented him to start iv heparin and he agreed to go ahead and start at 5 am today 16 hours after LP the risk of bleeding into low back and paralysis of ble was explained to him as the risk of bleeding into brain and some blood already there I notified him of that but if we do not start the heparin now we risk further infarcts into brain and even coma he agrees as such to start heparin with these risks and benefit explained i was hoping to wait 24 hours after LP as he told me late last noc that he has had rue sx since last wednesday figuring this clot has been present since then, but with the drastic change in the mri over last 24 hours i cannot wait any longer Objective Vital Signs Date Time Temp Pulse Resp B/P (MAP) Pulse Ox O2 Delivery O2 Flow Rate FiO2 04/05/17 06:00 54 04/05/17 04:00 66 04/05/17 04:00 97.8 66 23 119/84 (96) 04/05/17 02:00 64 04/05/17 00:00 58 04/05/17 00:00 98.4 58 19 96/55 (69) 04/04/17 22:00 68 04/04/17 20:00 80 04/04/17 20:00 98.4 80 18 112/69 (83) 04/04/17 19:00 93 Room Air I/O 04/04/17 04/04/17 04/04/17 04/05/17 04/05/17 04/05/17 07:00 15:00 23:00 07:00 15:00 23:00 Intake Total 341 ml 105 ml 1951 ml Output Total 800 ml Balance 341 ml 105 ml 1151 ml Intake Oral 1070 ml IV Total 341 ml 105 ml 881 ml Output Urine Total 800 ml # Voids 1 1 Result Diagram: 04/04/17 0444 04/05/17 0100 Objective Remarks awake alert vff face sym nl speech rue 4/5 can make fisrt ble 5/5 and lue 5/5 and nl sens ble Assessment and Plan Assessment and Plan imp sst on coumadin hep doing well if stable could go to floor tomorrow Masoud Najera MD Apr 05, 2017 08:07
--- NOTE | 2017-04-05 08:12 | HHI.PR ---
Subjective Remarks arm is getting stronger but still with weak back up worker Objective Vitals nad heart reg lung cta abd s/nt ext no edema Vital Signs Date Time Temp Pulse Resp B/P (MAP) Pulse Ox O2 Delivery O2 Flow Rate FiO2 04/05/17 06:00 54 04/05/17 04:00 66 04/05/17 04:00 97.8 66 23 119/84 (96) 04/05/17 02:00 64 04/05/17 00:00 58 04/05/17 00:00 98.4 58 19 96/55 (69) 04/04/17 22:00 68 04/04/17 20:00 80 04/04/17 20:00 98.4 80 18 112/69 (83) 04/04/17 19:00 93 Room Air Result Diagram: 04/04/17 0444 04/05/17 0100 Imaging Last Impressions Head CT 04/04/17 0000 Signed Impressions: Service Date/Time: Tuesday, April 04, 2017 04:06 - CONCLUSION: Negative exam. Augie Wong MD Thoracic Spine MRI 04/03/17 1029 Signed Impressions: Service Date/Time: Monday, April 03, 2017 11:41 - CONCLUSION: 1. Mild degenerative changes without compression fracture. 2. Disc bulges/protrusions at T5-6, T6-7 and T9-10 levels without canal stenosis. Keegan Dodd MD Cervical Spine MRI 04/03/17 1029 Signed Impressions: Service Date/Time: Monday, April 03, 2017 11:41 - CONCLUSION: There is some motion artifact but no definite enhancement seen. Please refer to MRI of the cervical spine for further detail on 04-02-17. Keegan Dodd MD Brain MRI 04/03/17 1029 Signed Impressions: Service Date/Time: Monday, April 03, 2017 11:41 - CONCLUSION: Unremarkable MRI of the brain. No enhancement.. Keegan Dodd MD Head/Brain Mag Res Venography 04/03/17 0000 Signed Impressions: Service Date/Time: Monday, April 03, 2017 11:41 - CONCLUSION: 1. Abnormal examination demonstrating thrombosis of the anterior and mid portions of the superior sagittal sinus. The posterior portions of the sagittal sinus are patent. The transverse sinuses, straight sinus and internal cerebral veins are patent. Dipesh Zamora MD Chest X-Ray 04/02/17 1531 Signed Impressions: Service Date/Time: Sunday, April 02, 2017 15:55 - CONCLUSION: 1. No acute cardiopulmonary findings. Dipesh Zamora MD Head Magnetic Resonance Angiography 04/02/17 0000 Signed Impressions: Service Date/Time: Sunday, April 02, 2017 16:05 - CONCLUSION: 1. Negative examination. Dipesh Zamora MD Carotid Artery Ultrasound 04/02/17 0000 Signed Impressions: Service Date/Time: Sunday, April 02, 2017 20:18 - CONCLUSION: Negative. No significant plaque or narrowing of either carotid. Ramsey Swartz MD A/P Problem List: (1) CVA (cerebral vascular accident) ICD Codes: I63.9 - Cerebral infarction, unspecified Status: Acute Plan: - Pt is a 56 y/o male with hx of previous multiple nondisplaced fractures of the pelvis and left radial fracture in 2013 after a fall off of a ladder - Pt presented to the ED with RUE paresthesias and weakness - Head CT (04/02) --> Negative - MRI/MRA Brain (04/02) --> Negative - Carotid US (04/02/17) --> No hemodynamically significant stenosis - 2D echo (04/02/17) --> EF 50-55% - MRI Cervical spine (04/02) --> - Central canal stenosis at C5-6 secondary to diffuse disc bulge with obliteration of the CSF surrounding the cord and mild flattening. - Broad base disc bulge at C4-5 greatest in left parasagittal region which reached the anterior cord with slight flattening and turning. There is no abnormal signal. - Moderate to severe narrowing of the neural foramina bilaterally at the C4- 5 and C5-6 levels as well as on the left at C2-3. - Milder disc bulge at C3-4 with no mass effect upon the cord. - Diffuse degenerative disc change. - b/l US (04/04/17) --> B/L DVT. occlusive right and nonocclusive left lower ext - CT Brain (04/04/17) --> No acute findings -MRV- shows superior sag. sinus vein thrombosis - Repeat MRI 04/03 shows right frontal and left parietal infarct and possible left frontal infarct. possible sah -heparin bridge to coumadin -hypercoag panel pending -keppra prophylaxis -discussed with neuro..oob today. if stable then transfer out of ICU tomorrow. updated pt and family. (2) Right arm weakness ICD Codes: R29.898 - Other symptoms and signs involving the musculoskeletal system Status: Acute Plan: see above (3) Occlusion of sagittal venous sinus ICD Codes: G08 - Intracranial and intraspinal phlebitis and thrombophlebitis Status: Acute Plan: - pt had LP (04/03/17) - CSF studies pending - case d/w Hematology, Dr. Flores (04/03/17) (4) DVT, bilateral lower limbs ICD Codes: I82.403 - Acute embolism and thrombosis of unspecified deep veins of lower extremity, bilateral Status: Acute Tobias Cuellar MD Apr 05, 2017 08:12
[2017-04-05] MEDS: SODIUM CHLORIDE 0.9% FLUSH 10 ML FLUSH IV FLUSH SCH ×2 (09:26→19:33)
--- NOTE | 2017-04-05 10:54 | RADRPT ---
EXAM DATE/TIME: 04/03/2017 12:54 [facility] COMPARISON: No previous studies available for comparison. INDICATIONS : Patient with a history of neuritis, needs a lumbar puncture. MEDICAL HISTORY : Cataracts GERD Hyperlipidemia SURGICAL HISTORY : Cataract surgery Varicose vein surgery ENCOUNTER: Initial ACUITY: 1 day PAIN SCORE: 0/10 LUMBAR PUNCTURE TIME: 1305 hours FLUORO TIME: 1.0 minutes IMAGE SERIES: 1 ACCESS LEVEL: L4-5 OPENING PRESSURE: 22 cm of water CLOSING PRESSURE: Not requested. FLUID: 26 cc of clear CSF was collected and sent to the laboratory for analysis. PROCEDURE : 1. Fluoroscopic guided lumbar puncture. 2. Recording of opening pressure. The risks, benefits and alternatives to the procedure were explained and verbal and written consent w as obtained. The site was prepped in sterile fashion. Full sterile technique was used, including ca p, mask, sterile gloves and gown and a large sterile sheet. Hand hygiene and 2% chlorhexidine and/or betadine/alcohol prep was utilized per protocol for cutaneous antisepsis. The skin and subcutaneous tissues were infiltrated with local anesthetic solution. With fluoroscopic guidance the lumbar thecal sac was punctured at the above level described above and the opening pressure was recorded. The above described fluid was removed without difficulty. The patient tolerated the procedure well and there were no complications. CONCLUSION: Uncomplicated fluoroscopically guided lumbar puncture with pressures as above. Dipesh Zamora MD on April 05, 2017 at 10:53 Board Certified Radiologist. This report was verified electronically.
[2017-04-05 11:29] LABS: APTT (PATIENT) 46.2 SEC (24.3-30.1)
--- NOTE | 2017-04-05 14:11 | HHI.IDPN ---
Subjective Subjective Remarks 56 y/o M admitted for RUE weakness. Found to have sinus thrombosis causing CVA. Also with LE DVT. LP nbot suggestive of infection. Hypercoagulable etiology work-up in progress Notes reviewed RUE with some improvement Off Acyclovir Antibiotics None Past Medical History Hx of cataracts Several nondisplaced fractures of the pelvis and left radial fracture in 2013 after a fall off of a ladder GERD Hyperlipidemia Past Surgical History Hx of cataract surgery Hx of varicose vein surgery bilaterally Tonsillectomy Allergies: Coded Allergies: Penicillins (Verified Allergy, Mild, RASH, 04/02/17) Objective . Vital Signs Date Time Temp Pulse Resp B/P (MAP) Pulse Ox O2 Delivery O2 Flow Rate FiO2 04/05/17 07:00 93 Room Air 04/05/17 06:00 54 04/05/17 04:00 66 04/05/17 04:00 97.8 66 23 119/84 (96) 04/05/17 02:00 64 04/05/17 00:00 58 04/05/17 00:00 98.4 58 19 96/55 (69) 04/04/17 22:00 68 04/04/17 20:00 80 04/04/17 20:00 98.4 80 18 112/69 (83) 04/04/17 19:00 93 Room Air . Laboratory Tests Test 04/04/17 04:44 White Blood Count 9.3 TH/MM3 Red Blood Count 4.85 MIL/MM3 Hemoglobin 14.4 GM/DL Hematocrit 42.2 % Mean Corpuscular Volume 87.1 FL Mean Corpuscular Hemoglobin 29.7 PG Mean Corpuscular Hemoglobin Concent 34.1 % Red Cell Distribution Width 13.8 % Platelet Count 192 TH/MM3 Mean Platelet Volume 8.8 FL Laboratory Tests Test 04/03/17 16:20 04/03/17 19:50 04/04/17 03:44 04/05/17 01:00 C-Reactive Protein 0.47 MG/DL Free Thyroxine 1.19 NG/DL Ammonia 18 MCMOL/L Blood Urea Nitrogen 16 MG/DL 22 MG/DL Creatinine 0.84 MG/DL 0.84 MG/DL Random Glucose 93 MG/DL 86 MG/DL Calcium Level 9.1 MG/DL 8.6 MG/DL Sodium Level 140 MEQ/L 142 MEQ/L Potassium Level 3.8 MEQ/L 3.7 MEQ/L Chloride Level 107 MEQ/L 111 MEQ/L Carbon Dioxide Level 23.7 MEQ/L 23.5 MEQ/L Anion Gap 9 MEQ/L 8 MEQ/L Estimat Glomerular Filtration Rate 95 ML/MIN 95 ML/MIN Microbiology Date/Time Source Procedure Growth Status 04/03/17 16:20 Blood Peripheral Aerobic Blood Culture - Preliminary NO GROWTH IN 2 DAYS Resulted 04/03/17 16:20 Blood Peripheral Anaerobic Blood Culture - Preliminary NO GROWTH IN 2 DAYS Resulted 04/03/17 16:20 Blood Peripheral Aerobic Blood Culture - Preliminary NO GROWTH IN 2 DAYS Resulted 04/03/17 16:20 Blood Peripheral Anaerobic Blood Culture - Preliminary NO GROWTH IN 2 DAYS Resulted 04/03/17 13:05 Cerebral Spinal Fluid Lumbar Puncture Fungal Smear Pending Received 04/03/17 13:05 Cerebral Spinal Fluid Lumbar Puncture Fungal Culture Pending Received 04/03/17 13:05 Cerebral Spinal Fluid Lumbar Puncture Acid Fast Stain Pending Received 04/03/17 13:05 Cerebral Spinal Fluid Lumbar Puncture Mycobacterial Culture Pending Received 04/03/17 13:05 Cerebral Spinal Fluid Lumbar Puncture Gram Stain - Final Resulted 04/03/17 13:05 Cerebral Spinal Fluid Lumbar Puncture CSF Culture - Preliminary NO GROWTH IN 48 HOURS. Resulted Imaging Last Impressions Head CT 04/04/17 0000 Signed Impressions: Service Date/Time: Tuesday, April 04, 2017 04:06 - CONCLUSION: Negative exam. Augie Wong MD Thoracic Spine MRI 04/03/17 1029 Signed Impressions: Service Date/Time: Monday, April 03, 2017 11:41 - CONCLUSION: 1. Mild degenerative changes without compression fracture. 2. Disc bulges/protrusions at T5-6, T6-7 and T9-10 levels without canal stenosis. Keegan Dodd MD Cervical Spine MRI 04/03/17 1029 Signed Impressions: Service Date/Time: Monday, April 03, 2017 11:41 - CONCLUSION: There is some motion artifact but no definite enhancement seen. Please refer to MRI of the cervical spine for further detail on 04-02-17. Keegan Dodd MD Brain MRI 04/03/17 1029 Signed Impressions: Service Date/Time: Monday, April 03, 2017 11:41 - CONCLUSION: Unremarkable MRI of the brain. No enhancement.. Keegan Dodd MD Head/Brain Mag Res Venography 04/03/17 0000 Signed Impressions: Service Date/Time: Monday, April 03, 2017 11:41 - CONCLUSION: 1. Abnormal examination demonstrating thrombosis of the anterior and mid portions of the superior sagittal sinus. The posterior portions of the sagittal sinus are patent. The transverse sinuses, straight sinus and internal cerebral veins are patent. Dipesh Zamora MD Chest X-Ray 04/02/17 1531 Signed Impressions: Service Date/Time: Sunday, April 02, 2017 15:55 - CONCLUSION: 1. No acute cardiopulmonary findings. Dipesh Zamora MD Head Magnetic Resonance Angiography 04/02/17 0000 Signed Impressions: Service Date/Time: Sunday, April 02, 2017 16:05 - CONCLUSION: 1. Negative examination. Dipesh Zamora MD Carotid Artery Ultrasound 04/02/17 0000 Signed Impressions: Service Date/Time: Sunday, April 02, 2017 20:18 - CONCLUSION: Negative. No significant plaque or narrowing of either carotid. Ramsey Swartz MD Physical Exam GENERAL: awake and alert, not in respiratory distress. SKIN: Warm and dry. No generalized rash, no ecchymoses and no evidence of embolic lesions. HEAD: Atraumatic. Normocephalic. No temporal wasting, or tenderness. EYES: Brundage conjunctiva. No petechia or hemorrhage. Pupils equal, round and reactive to light. Extraocular movements full and intact. No scleral icterus. No injection or drainage. EARS, NOSE AND THROAT: Nose without bleeding or purulent nasal discharge. No sinus tenderness. Mucous membranes pink and moist. No oral lesions noted. NECK: Trachea midline. Supple and not tender, no meningeal signs . No nuchal rigidity CARDIOVASCULAR: Regular rate and rhythm. No murmurs, rubs or gallops heard RESPIRATORY: Clear to auscultation. Breath sounds equal bilaterally. No rales , wheezing or rhonchi ABDOMEN: Soft, non-tender, nondistended. Bowel sounds present and normoactive. No guarding. No rebound. No organomegaly. EXTREMITIES: No clubbing, cyanosis, or edema.No joint effusion, has good ROM. No calf tenderness. Well perfused and warm. NEUROLOGICAL: Awake and alert. Cranial nerves grossly intact. RUE motor strength is 3-4/5. LUE, BLE 5/5. Fine motor movements R hand better PSYCHIATRIC: Normal affect, calm and cooperative. 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
[2017-04-05] MEDS: WARFARIN SOD 5 MG TAB PO SCH (15:29)
--- NOTE | 2017-04-05 22:04 | PD.ONC.PN ---
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 no new focal symptoms on heparin GTT Coumadin started Hypercoagulable w/u pending Objective Data Date Time Temp Pulse Resp B/P (MAP) Pulse Ox O2 Delivery O2 Flow Rate FiO2 04/05/17 18:00 62 04/05/17 16:00 63 04/05/17 16:00 98.1 63 15 124/85 (98) 96 04/05/17 14:00 69 04/05/17 12:00 98.1 60 16 129/82 (98) 97 04/05/17 12:00 60 04/05/17 10:00 76 04/05/17 08:00 97.7 60 16 145/83 (103) 97 04/05/17 08:00 60 04/05/17 07:00 93 Room Air 04/05/17 06:00 54 04/05/17 04:00 66 04/05/17 04:00 97.8 66 23 119/84 (96) 04/05/17 02:00 64 04/05/17 00:00 58 04/05/17 00:00 98.4 58 19 96/55 (69) 04/05/17 04/05/17 04/05/17 06:59 14:59 22:59 Intake Total 2065 ml Output Total 950 ml Balance 1115 ml Result Diagram: 04/04/17 0444 04/05/17 0100 Laboratory Results Laboratory Tests Test 04/05/17 01:00 04/05/17 10:49 Prothrombin Time 10.8 SEC Prothromb Time International Ratio 1.0 RATIO Activated Partial Thromboplast Time 47.0 SEC 46.2 SEC Blood Urea Nitrogen 22 MG/DL Creatinine 0.84 MG/DL Random Glucose 86 MG/DL Calcium Level 8.6 MG/DL Sodium Level 142 MEQ/L Potassium Level 3.7 MEQ/L Chloride Level 111 MEQ/L Carbon Dioxide Level 23.5 MEQ/L Anion Gap 8 MEQ/L Estimat Glomerular Filtration Rate 95 ML/MIN Culture Results Microbiology Date/Time Source Procedure Growth Status 04/03/17 16:20 Blood Peripheral Aerobic Blood Culture - Preliminary NO GROWTH IN 2 DAYS Resulted 04/03/17 16:20 Blood Peripheral Anaerobic Blood Culture - Preliminary NO GROWTH IN 2 DAYS Resulted 04/03/17 16:20 Blood Peripheral Aerobic Blood Culture - Preliminary NO GROWTH IN 2 DAYS Resulted 04/03/17 16:20 Blood Peripheral Anaerobic Blood Culture - Preliminary NO GROWTH IN 2 DAYS Resulted 04/03/17 13:05 Cerebral Spinal Fluid Lumbar Puncture Fungal Smear - Final NO FUNGAL ELEMENTS SEEN. Resulted 04/03/17 13:05 Cerebral Spinal Fluid Lumbar Puncture Fungal Culture Pending Resulted 04/03/17 13:05 Cerebral Spinal Fluid Lumbar Puncture Acid Fast Stain Pending Received 04/03/17 13:05 Cerebral Spinal Fluid Lumbar Puncture Mycobacterial Culture Pending Received 04/03/17 13:05 Cerebral Spinal Fluid Lumbar Puncture Gram Stain - Final Resulted 04/03/17 13:05 Cerebral Spinal Fluid Lumbar Puncture CSF Culture - Preliminary NO GROWTH IN 48 HOURS. Resulted Administered Medications Medications (Trade) Dose Ordered Sig/[place] Route PRN Reason Start Time Stop Time Status Last Admin Dose Admin Sodium Chloride (NS Flush) 2 ml UNSCH PRN IV FLUSH FLUSH AFTER USING IV ACCESS 04/02/17 15:45 04/03/17 05:29 Sodium Chloride (NS Flush) 2 ml BID IV FLUSH 04/02/17 21:00 04/05/17 09:26 Pravastatin Sodium (Pravachol) 40 mg HS PO 04/02/17 21:00 04/04/17 20:40 Lorazepam (Ativan Inj) 1 mg Q6H PRN IV PUSH seizure activity 04/02/17 19:15 04/03/17 11:06 Levetriacetam 500 mg/Sodium Chloride 105 ml @ 420 mls/hr Q12H IV 04/04/17 03:00 04/05/17 15:29 Heparin Sodium/ Dextrose 250 ml @ 0 mls/hr TITRATE IV 04/04/17 05:00 04/05/17 04:07 Warfarin Sodium (Coumadin) 5 mg DAILY@1600 PO 04/05/17 16:00 04/05/17 15:29 Sodium Chloride 1,000 ml @ 75 mls/hr [id number] IV 04/04/17 04:49 04/05/17 20:41 Objective Remarks GENERAL: nad SKIN: Warm and dry. LYMPHATIC: No adenopathy. CARDIOVASCULAR: Regular rate and rhythm without murmurs. RESPIRATORY: Breath sounds equal bilaterally. No accessory muscle use. GASTROINTESTINAL: Abdomen soft, non-tender, nondistended. EXTREMITIES: No cyanosis, or edema. Assessment/Plan Problem List: (1) Occlusion of sagittal venous sinus ICD Codes: G08 - Intracranial and intraspinal phlebitis and thrombophlebitis Status: Acute Plan: --currently on heparin-->Coumadin --will need lifetime anticoagulation. --hypercoag w/u pending --LE U/S showed DVT History: --presented with weakness in the right upper extremity x 1 day. brain venography was obtained and this showed a thrombosis of the anterior and the posterior portion of the sagittal sinus was patent. -- no past medical history of any type of thrombosis. (2) DVT, bilateral lower limbs ICD Codes: I82.403 - Acute embolism and thrombosis of unspecified deep veins of lower extremity, bilateral Status: Acute Plan: --on heparin-->coumadin U/S, lower extremities showed bilateral lower extremity DVT Assessment 56y/o male admitted with superior sagittal sinus thrombosis history of hyperlipidemia, gastroesophageal reflux disease, history of nondisplaced fracture of the pelvis and left radial fracture after he fell off a ladder in 2013 and history of cataracts Plan 1. continue heparin gtt and coumadin 2. Needs to have INR > 2 for 72 hours before starting heparin in this high risk patient 3. daily coags Romaine Flores MD Apr 05, 2017 22:04
[2017-04-05] MEDS: PRAVASTATIN SOD 40 MG TAB PO SCH (22:29)
[2017-04-06] VITALS (11 sets, daily range): BP systolic 118–133; BP diastolic 74–83; PULSE 54–82; RESP 17–29; TEMP 98–98.7; O2SAT 95–100
[2017-04-06] MEDS: HEPARIN-D5W 25,000 U/250 ML 250 ML IV SCH ×2 (00:27→20:30)
[2017-04-06] MEDS: levETIRAcetam INJ 500 MG in SODIUM CHLORIDE 0.9% INJ 100 ML IV SCH ×2 (03:33→16:00)
[2017-04-06 04:31] LABS: INTERNATIONAL NORMALIZED RATIO 1.2 RATIO; PROTHROMBIN TIME - PATIENT 13.7 SEC (9.8-11.6)
[2017-04-06 06:18] LABS: APTT (PATIENT) 39.4 SEC (24.3-30.1)
--- NOTE | 2017-04-06 07:11 | HHI.PR ---
Subjective Remarks mri repeat shows some slight sah not seen on ct but some slight enlargement of left cortical abn and now a new larger r frontal cortical edema and venous infarct clinically a little bit slurred speech now over phone but nurse tells me moving legs fine and left arm ok still weak but able to move rue and not fisted i dw pt and over phone consented him to start iv heparin and he agreed to go ahead and start at 5 am today 16 hours after LP the risk of bleeding into low back and paralysis of ble was explained to him as the risk of bleeding into brain and some blood already there I notified him of that but if we do not start the heparin now we risk further infarcts into brain and even coma he agrees as such to start heparin with these risks and benefit explained i was hoping to wait 24 hours after LP as he told me late last that he has had rue sx since last wednesday figuring this clot has been present since then, but with the drastic change in the mri over last 24 hours i cannot wait any longer 04/06/17 no co overnoc Objective Vital Signs Date Time Temp Pulse Resp B/P (MAP) Pulse Ox O2 Delivery O2 Flow Rate FiO2 04/06/17 06:00 62 04/06/17 04:00 54 04/06/17 04:00 98.4 54 17 128/74 (92) 95 04/06/17 02:00 56 04/06/17 00:00 98.7 68 18 132/76 (94) 95 04/06/17 00:00 68 04/05/17 22:19 97 04/05/17 22:00 75 04/05/17 20:00 77 04/05/17 20:00 97.8 84 22 117/72 (87) 98 04/05/17 19:00 96 Room Air 04/05/17 18:00 62 04/05/17 16:00 63 04/05/17 16:00 98.1 63 15 124/85 (98) 96 04/05/17 14:00 69 04/05/17 12:00 98.1 60 16 129/82 (98) 97 04/05/17 12:00 60 04/05/17 10:00 76 04/05/17 08:00 97.7 60 16 145/83 (103) 97 04/05/17 08:00 60 I/O 04/05/17 04/05/17 04/05/17 04/06/17 04/06/17 04/06/17 07:00 15:00 23:00 07:00 15:00 23:00 Intake Total 2065 ml 565 ml Output Total 950 ml 1000 ml Balance 1115 ml -435 ml Intake Oral 960 ml 240 ml IV Total 1105 ml 325 ml Output Urine Total 950 ml 1000 ml Stool Total 0 ml # Bowel Movements 0 Result Diagram: 04/04/17 0444 04/05/17 0100 Objective Remarks awake alert vff face sym nl speech rue 4+/5 can make fist r hand ble 5/5 and lue 5/5 Assessment and Plan Assessment and Plan imp sst on coumadin hep doing well can go to floor today tele keppra follow inr doing well Masoud Cruz MD Apr 06, 2017 07:11
[2017-04-06] MEDS: SODIUM CHLORIDE 0.9% FLUSH 10 ML FLUSH IV FLUSH SCH ×2 (09:00→21:00)
[2017-04-06 09:47] LABS: HSV 1,PCR Negative (Negative)
--- NOTE | 2017-04-06 09:53 | HHI.PR ---
Subjective Remarks doing well. no complaints. rue stronger. has been oob. Objective Vitals heart reg lung cta abd sn/t ext no edema Vital Signs Date Time Temp Pulse Resp B/P (MAP) Pulse Ox O2 Delivery O2 Flow Rate FiO2 04/06/17 07:00 96 Room Air 04/06/17 06:00 62 04/06/17 04:00 54 04/06/17 04:00 98.4 54 17 128/74 (92) 95 04/06/17 02:00 56 04/06/17 00:00 98.7 68 18 132/76 (94) 95 04/06/17 00:00 68 04/05/17 22:19 97 04/05/17 22:00 75 04/05/17 20:00 77 04/05/17 20:00 97.8 84 22 117/72 (87) 98 04/05/17 19:00 96 Room Air 04/05/17 18:00 62 04/05/17 16:00 63 04/05/17 16:00 98.1 63 15 124/85 (98) 96 04/05/17 14:00 69 04/05/17 12:00 98.1 60 16 129/82 (98) 97 04/05/17 12:00 60 04/05/17 10:00 76 Result Diagram: 04/04/17 0444 04/05/17 0100 Imaging Last Impressions Head CT 04/04/17 0000 Signed Impressions: Service Date/Time: Tuesday, April 04, 2017 04:06 - CONCLUSION: Negative exam. Augie Wong MD Thoracic Spine MRI 04/03/17 1029 Signed Impressions: Service Date/Time: Monday, April 03, 2017 11:41 - CONCLUSION: 1. Mild degenerative changes without compression fracture. 2. Disc bulges/protrusions at T5-6, T6-7 and T9-10 levels without canal stenosis. Keegan Dodd MD Cervical Spine MRI 04/03/17 1029 Signed Impressions: Service Date/Time: Monday, April 03, 2017 11:41 - CONCLUSION: There is some motion artifact but no definite enhancement seen. Please refer to MRI of the cervical spine for further detail on 04-02-17. Keegan Dodd MD Brain MRI 04/03/17 1029 Signed Impressions: Service Date/Time: Monday, April 03, 2017 11:41 - CONCLUSION: Unremarkable MRI of the brain. No enhancement.. Keegan Dodd MD Head/Brain Mag Res Venography 04/03/17 0000 Signed Impressions: Service Date/Time: Monday, April 03, 2017 11:41 - CONCLUSION: 1. Abnormal examination demonstrating thrombosis of the anterior and mid portions of the superior sagittal sinus. The posterior portions of the sagittal sinus are patent. The transverse sinuses, straight sinus and internal cerebral veins are patent. Dipesh Zamora MD Chest X-Ray 04/02/17 1531 Signed Impressions: Service Date/Time: Sunday, April 02, 2017 15:55 - CONCLUSION: 1. No acute cardiopulmonary findings. Dipesh Zamora MD Head Magnetic Resonance Angiography 04/02/17 0000 Signed Impressions: Service Date/Time: Sunday, April 02, 2017 16:05 - CONCLUSION: 1. Negative examination. Dipesh Zamora MD Carotid Artery Ultrasound 04/02/17 0000 Signed Impressions: Service Date/Time: Sunday, April 02, 2017 20:18 - CONCLUSION: Negative. No significant plaque or narrowing of either carotid. Ramsey Swartz MD A/P Problem List: (1) CVA (cerebral vascular accident) ICD Codes: I63.9 - Cerebral infarction, unspecified Status: Acute Plan: - Pt is a 56 y/o male with hx of previous multiple nondisplaced fractures of the pelvis and left radial fracture in 2013 after a fall off of a ladder - Pt presented to the ED with RUE paresthesias and weakness - Head CT (04/02) --> Negative - MRI/MRA Brain (04/02) --> Negative - Carotid US (04/02/17) --> No hemodynamically significant stenosis - 2D echo (04/02/17) --> EF 50-55% - MRI Cervical spine (04/02) --> - Central canal stenosis at C5-6 secondary to diffuse disc bulge with obliteration of the CSF surrounding the cord and mild flattening. - Broad base disc bulge at C4-5 greatest in left parasagittal region which reached the anterior cord with slight flattening and turning. There is no abnormal signal. - Moderate to severe narrowing of the neural foramina bilaterally at the C4- 5 and C5-6 levels as well as on the left at C2-3. - Milder disc bulge at C3-4 with no mass effect upon the cord. - Diffuse degenerative disc change. - b/l US (04/04/17) --> B/L DVT. occlusive right and nonocclusive left lower ext - CT Brain (04/04/17) --> No acute findings -MRV- shows superior sag. sinus vein thrombosis - Repeat MRI 04/03 shows right frontal and left parietal infarct and possible left frontal infarct. possible sah -heparin bridge to coumadin -hypercoag panel pending -keppra prophylaxis -discussed with neuro..oob today. transfer out of icu to tele bed - repeat mri/mrv brain ordered per neuro (2) Right arm weakness ICD Codes: R29.898 - Other symptoms and signs involving the musculoskeletal system Status: Acute Plan: see above (3) Occlusion of sagittal venous sinus ICD Codes: G08 - Intracranial and intraspinal phlebitis and thrombophlebitis Status: Acute Plan: - pt had LP (04/03/17) - CSF studies pending - case d/w Hematology, Dr. Flores (04/03/17) (4) DVT, bilateral lower limbs ICD Codes: I82.403 - Acute embolism and thrombosis of unspecified deep veins of lower extremity, bilateral Status: Acute Tobias Cuellar MD Apr 06, 2017 09:53
[2017-04-06] MEDS ORDERED: GADODIAMIDE PF 287 MG/ML 20 ML VIAL (for RAD MRI) IVCONTRAST ONE (10:40)
--- NOTE | 2017-04-06 11:37 | RADRPT ---
EXAM DATE/TIME: 04/06/2017 10:16 COMPARISON: MRV BRAIN W CONTRAST, April 03, 2017, 11:41. INDICATIONS : Thrombosis. CONTRAST: 20 cc Omniscan (gadodiamide) IV MEDICAL HISTORY : None. SURGICAL HISTORY : Tonsillectomy. Varicose vein surgery. ENCOUNTER: Subsequent ACUITY: 4-6 days PAIN SCORE: 0/10 LOCATION: head. FINDINGS: As seen previously, there is marked irregularity through most of the superior sagittal sinus with pre servation of normal patency far posteriorly just above the torcula. The straight sinus and transverse sinuses as well as the sigmoid sinuses and jugular flow remains patent with no apparent left jugular dominance CONCLUSION: 1. MRV suggest at least partial occlusion of the superior sagittal sinus to a level approximately 5.5 cm above the torcula. 2. The straight sinus is diminutive but patent. Transverse sinuses and jugular outflow are also paten t. 3. No significant change from prior. Augie Wong MD on April 06, 2017 at 11:29 Board Certified Radiologist. This report was verified electronically.
--- NOTE | 2017-04-06 11:51 | RADRPT ---
EXAM DATE/TIME: 04/06/2017 10:16 This report includes an Addendum and supersedes previous reports for this exam. [facility] COMPARISON: MRI BRAIN W/O CONTRAST, April 02, 2017, 16:05. MRI BRAIN W & W/O CONTRAST, April 03, 2017, 11:41. INDICATIONS : CVA. Right upper extremity weakness. CONTRAST: 20 cc Omniscan (gadodiamide) IV MEDICAL HISTORY : Seizures. SURGICAL HISTORY : Tonsillectomy. Varicose vein surgery. ENCOUNTER: Subsequent ACUITY: 4-6 days PAIN SCORE: 0/10 LOCATION: head. TECHNIQUE: Multiplanar, multisequence MRI of the brain was performed both prior to and following the administrat ion of paramagnetic contrast. FINDINGS: There is abnormal signal seen involving the cortex and immediate subcortical white matter of the left parietal lobe near the vertex. This lesion measures approximately 1 cm in diameter. It is high on th e flair signal. No abnormal enhancement. No hemorrhage. There is a suggestion of mild restricted diff usion. This is most consistent with a subacute cortical infarction. A second area of abnormal signal is seen involving the cortex and immediate subcortical white matter of the right frontal lobe. This parallels the cortex and generates a serpiginous type pattern. It is high on the flair signal as well as the T2-weighted sequence. No abnormal enhancement. No restricted diffusion. No mass effect. No hemorrhage. Ventricles are normal in size. Orbital structures are unremarkable. Visualized paranasal sinuses and mastoid air cells are clear. CONCLUSION: 1. Small subacute cortical infarction in the left parietal lobe. 2. Area of abnormal signal involving the right frontal lobe is nonspecific. Differential diagnostic c onsiderations would include a subcortical infarction, vasculitis, cerebritis, and low-grade malignanc y. A short-term followup MRI in 3 months should be considered. Consideration could be made to spectro scopy of the frontal lobe lesion at that time to try further differentiate. Tejas Jacobs Jr., MD on April 06, 2017 at 11:30 Board Certified Radiologist. This report was verified electronically. ADDENDUM: These lesions are new from the prior study. Tejas Jacobs Jr., MD on April 07, 2017 at 12:57 Board Certified Radiologist. This report was verified electronically.
[2017-04-06] MEDS: SODIUM CHLOR 0.9% 1000 ML INJ 1,000 ML IV SCH ×2 (12:05→23:24)
[2017-04-06 14:16] LABS: CSF CRYPTOCOCCUS AG CONF ND (NOT DETECTD)
[2017-04-06] MEDS: WARFARIN SOD 5 MG TAB PO SCH (16:00)
[2017-04-06 16:36] LABS: APTT (PATIENT) 55.9 SEC (24.3-30.1)
--- NOTE | 2017-04-06 18:13 | PD.ONC.PN ---
Subjective Subjective Remarks symptoms stable some increase in extremity strength Heparin GTT being transferred to floor Objective Data Date Time Temp Pulse Resp B/P (MAP) Pulse Ox O2 Delivery O2 Flow Rate FiO2 04/06/17 18:00 72 04/06/17 16:00 98.3 72 29 133/83 (100) 96 04/06/17 16:00 75 04/06/17 14:00 73 04/06/17 12:00 98.3 72 29 133/83 (100) 96 04/06/17 12:00 72 04/06/17 08:00 66 04/06/17 08:00 98.0 66 20 118/77 (91) 95 04/06/17 07:00 96 Room Air 04/06/17 06:00 62 04/06/17 04:00 54 04/06/17 04:00 98.4 54 17 128/74 (92) 95 04/06/17 02:00 56 04/06/17 00:00 98.7 68 18 132/76 (94) 95 04/06/17 00:00 68 04/05/17 22:19 97 04/05/17 22:00 75 04/05/17 20:00 77 04/05/17 20:00 97.8 84 22 117/72 (87) 98 04/05/17 19:00 96 Room Air 04/06/17 04/06/17 04/06/17 06:59 14:59 22:59 Intake Total 565 ml 1000 ml 1185 ml Output Total 1000 ml 1500 ml Balance -435 ml 1000 ml -315 ml Result Diagram: 04/04/17 0444 04/05/17 0100 Laboratory Results Laboratory Tests Test 04/06/17 03:23 04/06/17 15:46 Prothrombin Time 13.7 SEC Prothromb Time International Ratio 1.2 RATIO Activated Partial Thromboplast Time 39.4 SEC 55.9 SEC Administered Medications Medications (Trade) Dose Ordered Sig/Olayinka Route PRN Reason Start Time Stop Time Status Last Admin Dose Admin Sodium Chloride (NS Flush) 2 ml UNSCH PRN IV FLUSH FLUSH AFTER USING IV ACCESS 04/02/17 15:45 04/03/17 05:29 Sodium Chloride (NS Flush) 2 ml BID IV FLUSH 04/02/17 21:00 04/05/17 09:26 Pravastatin Sodium (Pravachol) 40 mg HS PO 8/18/17 21:00 04/05/17 22:29 Lorazepam (Ativan Inj) 1 mg Q6H PRN IV PUSH seizure activity 04/02/17 19:15 04/03/17 11:06 Levetriacetam 500 mg/Sodium Chloride 105 ml @ 420 mls/hr Q12H IV 04/04/17 03:00 04/06/17 16:00 Heparin Sodium/ Dextrose 250 ml @ 0 mls/hr TITRATE IV 04/04/17 05:00 04/06/17 00:27 Warfarin Sodium (Coumadin) 5 mg DAILY@1600 PO 04/05/17 16:00 04/06/17 16:00 Sodium Chloride 1,000 ml @ 75 mls/hr [id number] IV 04/04/17 04:49 04/06/17 12:05 Objective Remarks GENERAL: nad SKIN: Warm and dry NECK: Supple, trachea midline. No JVD or lymphadenopathy. LYMPHATIC: No adenopathy. CARDIOVASCULAR: Regular rate and rhythm without murmurs. RESPIRATORY: Breath sounds equal bilaterally. No accessory muscle use. GASTROINTESTINAL: Abdomen soft, non-tender, nondistended. EXTREMITIES: No cyanosis, or edema. Assessment/Plan Problem List: (1) Occlusion of sagittal venous sinus ICD Codes: G08 - Intracranial and intraspinal phlebitis and thrombophlebitis Status: Acute Plan: --currently on heparin-->Coumadin --will need lifetime anticoagulation. --hypercoag w/u pending --LE U/S showed DVT History: --presented with weakness in the right upper extremity x 1 day. brain venography was obtained and this showed a thrombosis of the anterior and the posterior portion of the sagittal sinus was patent. -- no past medical history of any type of thrombosis. (2) DVT, bilateral lower limbs ICD Codes: I82.403 - Acute embolism and thrombosis of unspecified deep veins of lower extremity, bilateral Status: Acute Plan: --on heparin-->coumadin U/S, lower extremities showed bilateral lower extremity DVT Assessment 56y/o male admitted with superior sagittal sinus thrombosis history of hyperlipidemia, gastroesophageal reflux disease, history of nondisplaced fracture of the pelvis and left radial fracture after he fell off a ladder in 2013 and history of cataracts Plan 1. continue heparin gtt and coumadin 2. Needs to have INR > 2 for 72 hours before starting heparin in this high risk patient 3. daily coags Romaine Flores MD Apr 06, 2017 18:13
[2017-04-06] MEDS: PRAVASTATIN SOD 40 MG TAB PO SCH (20:28)
[2017-04-06 20:44] LABS: CMV PCR SPECIMEN SOURCE CSF; ENTEROVIRUS PCR RESULT Negative (Negative); ENTEROVIRUS PCR SPEC SOURCE CSF; LYME IGG IMMUNOBLOT CSF None Detected bands (None Detected); LYME IGM IMMUNOBLOT CSF None Detected bands (None Detected)
[2017-04-06 22:27] LABS: APTT (PATIENT) 51.5 SEC (24.3-30.1)
[2017-04-07] VITALS (13 sets, daily range): BP systolic 117–148; BP diastolic 78–90; PULSE 58–84; RESP 20–27; TEMP 98.2–98.4; O2SAT 97–99
[2017-04-07] MEDS: levETIRAcetam INJ 500 MG in SODIUM CHLORIDE 0.9% INJ 100 ML IV SCH (03:02)
[2017-04-07 04:09] LABS: HEMATOCRIT 43.9 % (39.0-51.0); MEAN CELL VOLUME 87.3 FL (80.0-100.0); MEAN CORPUSCULAR HEMOGLOBIN 28.8 PG (27.0-34.0); PLATELET COUNT 188 TH/MM3 (150-450); RED BLOOD COUNT 5.03 MIL/MM3 (4.50-5.90); RED CELL DISTRIBUTION WIDTH 13.4 % (11.6-17.2); REVIEW FLAG FINAL; WHITE BLOOD COUNT 7.4 TH/MM3 (4.0-11.0)
[2017-04-07 04:33] LABS: APTT (PATIENT) 52.3 SEC (24.3-30.1); INTERNATIONAL NORMALIZED RATIO 1.5 RATIO; PROTHROMBIN TIME - PATIENT 16.4 SEC (9.8-11.6)
--- NOTE | 2017-04-07 07:17 | HHI.PR ---
Subjective Remarks mri repeat shows some slight sah not seen on ct but some slight enlargement of left cortical abn and now a new larger r frontal cortical edema and venous infarct clinically a little bit slurred speech now over phone but nurse tells me moving legs fine and left arm ok still weak but able to move rue and not fisted i dw pt and over phone consented him to start iv heparin and he agreed to go ahead and start at 5 am today 16 hours after LP the risk of bleeding into low back and paralysis of ble was explained to him as the risk of bleeding into brain and some blood already there I notified him of that but if we do not start the heparin now we risk further infarcts into brain and even coma he agrees as such to start heparin with these risks and benefit explained i was hoping to wait 24 hours after LP as he told me late last that he has had rue sx since last wednesday figuring this clot has been present since then, but with the drastic change in the mri over last 24 hours i cannot wait any longer 04/06/17 no co overnoc Objective Vital Signs Date Time Temp Pulse Resp B/P (MAP) Pulse Ox O2 Delivery O2 Flow Rate FiO2 04/07/17 06:00 58 04/07/17 04:00 98.4 65 21 130/78 (95) 97 04/07/17 04:00 65 04/07/17 02:00 75 04/07/17 00:00 66 04/07/17 00:00 98.3 74 20 148/82 (104) 98 04/06/17 22:00 66 04/06/17 20:00 82 04/06/17 20:00 98.0 82 25 129/80 (96) 100 04/06/17 19:00 97 Room Air 04/06/17 18:00 72 04/06/17 16:00 98.3 72 29 133/83 (100) 96 04/06/17 16:00 75 04/06/17 14:00 73 04/06/17 12:00 98.3 72 29 133/83 (100) 96 04/06/17 12:00 72 04/06/17 08:00 66 04/06/17 08:00 98.0 66 20 118/77 (91) 95 I/O 04/06/17 04/06/17 04/06/17 04/07/17 04/07/17 04/07/17 07:00 15:00 23:00 07:00 15:00 23:00 Intake Total 565 ml 1000 ml 1435 ml 240 ml Output Total 1000 ml 1500 ml 800 ml Balance -435 ml 1000 ml -65 ml -560 ml Intake Oral 240 ml 1080 ml 240 ml IV Total 325 ml 1000 ml 355 ml Output Urine Total 1000 ml 1500 ml 800 ml Stool Total 0 ml 0 ml # Bowel Movements 0 Result Diagram: 04/07/17 0352 04/05/17 0100 Objective Remarks awake alert vff face sym nl speech rue 4+/5 FFM BETTER can make fist r hand ble 5/5 and lue 5/5 Assessment and Plan Assessment and Plan imp sst on coumadin hep doing well can go to floor today tele keppra follow inr 1.5 doing well oob mri/v stable yest i reviewed no acute cva no blood Masoud Acosta MD Apr 07, 2017 07:17
[2017-04-07] MEDS: SODIUM CHLORIDE 0.9% FLUSH 10 ML FLUSH IV FLUSH SCH ×2 (09:00→20:46)
--- NOTE | 2017-04-07 09:46 | HHI.PR ---
Subjective Remarks doing great. ambulating. Objective Vitals heart reg lung cta abd s/nt ext no edema Vital Signs Date Time Temp Pulse Resp B/P (MAP) Pulse Ox O2 Delivery O2 Flow Rate FiO2 04/07/17 07:00 100 Room Air 04/07/17 06:00 58 04/07/17 04:00 98.4 65 21 130/78 (95) 97 04/07/17 04:00 65 04/07/17 02:00 75 04/07/17 00:00 66 04/07/17 00:00 98.3 74 20 148/82 (104) 98 04/06/17 22:00 66 04/06/17 20:00 82 04/06/17 20:00 98.0 82 25 129/80 (96) 100 04/06/17 19:00 97 Room Air 04/06/17 18:00 72 04/06/17 16:00 98.3 72 29 133/83 (100) 96 04/06/17 16:00 75 04/06/17 14:00 73 04/06/17 12:00 98.3 72 29 133/83 (100) 96 04/06/17 12:00 72 Result Diagram: 04/07/17 0352 04/05/17 0100 Imaging Last Impressions Head CT 04/04/17 0000 Signed Impressions: Service Date/Time: Tuesday, April 04, 2017 04:06 - CONCLUSION: Negative exam. Augie Wong MD Thoracic Spine MRI 04/03/17 1029 Signed Impressions: Service Date/Time: Monday, April 03, 2017 11:41 - CONCLUSION: 1. Mild degenerative changes without compression fracture. 2. Disc bulges/protrusions at T5-6, T6-7 and T9-10 levels without canal stenosis. Keegan Dodd MD Cervical Spine MRI 04/03/17 1029 Signed Impressions: Service Date/Time: Monday, April 03, 2017 11:41 - CONCLUSION: There is some motion artifact but no definite enhancement seen. Please refer to MRI of the cervical spine for further detail on 04-02-17. Keegan Dodd MD Brain MRI 04/03/17 1029 Signed Impressions: Service Date/Time: Monday, April 03, 2017 11:41 - CONCLUSION: Unremarkable MRI of the brain. No enhancement.. Keegan Dodd MD Head/Brain Mag Res Venography 04/03/17 0000 Signed Impressions: Service Date/Time: Monday, April 03, 2017 11:41 - CONCLUSION: 1. Abnormal examination demonstrating thrombosis of the anterior and mid portions of the superior sagittal sinus. The posterior portions of the sagittal sinus are patent. The transverse sinuses, straight sinus and internal cerebral veins are patent. Dipesh Zamora MD Chest X-Ray 04/02/17 1531 Signed Impressions: Service Date/Time: Sunday, April 02, 2017 15:55 - CONCLUSION: 1. No acute cardiopulmonary findings. Dipesh Zamora MD Head Magnetic Resonance Angiography 04/02/17 0000 Signed Impressions: Service Date/Time: Sunday, April 02, 2017 16:05 - CONCLUSION: 1. Negative examination. Dipesh Zamora MD Carotid Artery Ultrasound 04/02/17 0000 Signed Impressions: Service Date/Time: Sunday, April 02, 2017 20:18 - CONCLUSION: Negative. No significant plaque or narrowing of either carotid. Ramsey Swartz MD A/P Problem List: (1) CVA (cerebral vascular accident) ICD Codes: I63.9 - Cerebral infarction, unspecified Status: Acute Plan: - Pt is a 56 y/o male with hx of previous multiple nondisplaced fractures of the pelvis and left radial fracture in 2013 after a fall off of a ladder - Pt presented to the ED with RUE paresthesias and weakness - Head CT (04/02) --> Negative - MRI/MRA Brain (04/02) --> Negative - Carotid US (04/02/17) --> No hemodynamically significant stenosis - 2D echo (04/02/17) --> EF 50-55% - MRI Cervical spine (04/02) --> - Central canal stenosis at C5-6 secondary to diffuse disc bulge with obliteration of the CSF surrounding the cord and mild flattening. - Broad base disc bulge at C4-5 greatest in left parasagittal region which reached the anterior cord with slight flattening and turning. There is no abnormal signal. - Moderate to severe narrowing of the neural foramina bilaterally at the C4- 5 and C5-6 levels as well as on the left at C2-3. - Milder disc bulge at C3-4 with no mass effect upon the cord. - Diffuse degenerative disc change. - b/l US (04/04/17) --> B/L DVT. occlusive right and nonocclusive left lower ext - CT Brain (04/04/17) --> No acute findings -MRV- shows superior sag. sinus vein thrombosis - Repeat MRI 04/03 shows right frontal and left parietal infarct and possible left frontal infarct. possible sah -heparin bridge to coumadin -hypercoag panel pending -keppra prophylaxis...iv to po -d/c ivf -discussed with neuro..oob today. transfer out of icu to tele bed pending - repeat mri/mrv brain ordered per neuro and noted. plan for d/c once his coumadin is therapeutic. (2) Right arm weakness ICD Codes: R29.898 - Other symptoms and signs involving the musculoskeletal system Status: Acute Plan: see above (3) Occlusion of sagittal venous sinus ICD Codes: G08 - Intracranial and intraspinal phlebitis and thrombophlebitis Status: Acute Plan: - pt had LP (04/03/17) - CSF studies pending - case d/w Hematology, Dr. Flores (04/03/17) (4) DVT, bilateral lower limbs ICD Codes: I82.403 - Acute embolism and thrombosis of unspecified deep veins of lower extremity, bilateral Status: Acute Tobias Cuellar MD Apr 07, 2017 09:45
[2017-04-07] MEDS: WARFARIN SOD 5 MG TAB PO SCH (16:17)
[2017-04-07] MEDS: HEPARIN-D5W 25,000 U/250 ML 250 ML IV SCH (16:58)
[2017-04-07 17:52] LABS: B. BURGDORFERI DNA PCR CSF NOT DETECTED (NOT DETECTE)
[2017-04-07] MEDS: levETIRAcetam 500 MG TAB PO SCH (20:46)
[2017-04-07] MEDS: PRAVASTATIN SOD 40 MG TAB PO SCH (20:46)
--- NOTE | 2017-04-07 23:51 | PD.ONC.PN ---
Subjective Subjective Remarks doing better no new symptoms sitting in chair heaprin gtt Objective Data Date Time Temp Pulse Resp B/P (MAP) Pulse Ox O2 Delivery O2 Flow Rate FiO2 04/07/17 22:00 68 04/07/17 21:55 99 04/07/17 20:00 84 04/07/17 20:00 98.3 84 22 117/85 (96) 98 04/07/17 19:00 100 Room Air 04/07/17 18:00 82 04/07/17 16:00 98.4 68 27 133/83 (100) 98 04/07/17 16:00 68 04/07/17 14:00 73 04/07/17 12:00 98.2 74 22 130/90 (103) 98 04/07/17 12:00 74 04/07/17 10:00 72 04/07/17 08:00 72 04/07/17 08:00 98.4 72 22 128/78 (95) 97 04/07/17 07:00 100 Room Air 04/07/17 06:00 58 04/07/17 04:00 98.4 65 21 130/78 (95) 97 04/07/17 04:00 65 04/07/17 02:00 75 04/07/17 00:00 66 04/07/17 00:00 98.3 74 20 148/82 (104) 98 Result Diagram: 04/07/17 0352 04/05/17 0100 Laboratory Results Laboratory Tests Test 04/07/17 03:52 White Blood Count 7.4 TH/MM3 Red Blood Count 5.03 MIL/MM3 Hemoglobin 14.5 GM/DL Hematocrit 43.9 % Mean Corpuscular Volume 87.3 FL Mean Corpuscular Hemoglobin 28.8 PG Mean Corpuscular Hemoglobin Concent 33.0 % Red Cell Distribution Width 13.4 % Platelet Count 188 TH/MM3 Mean Platelet Volume 8.6 FL Prothrombin Time 16.4 SEC Prothromb Time International Ratio 1.5 RATIO Activated Partial Thromboplast Time 52.3 SEC Administered Medications Medications (Trade) Dose Ordered Sig/Olayinka Route PRN Reason Start Time Stop Time Status Last Admin Dose Admin Sodium Chloride (NS Flush) 2 ml UNSCH PRN IV FLUSH FLUSH AFTER USING IV ACCESS 04/02/17 15:45 04/03/17 05:29 Sodium Chloride (NS Flush) 2 ml BID IV FLUSH 04/02/17 21:00 04/07/17 20:46 Pravastatin Sodium (Pravachol) 40 mg HS PO 04/02/17 21:00 04/07/17 20:46 Heparin Sodium/ Dextrose 250 ml @ 0 mls/hr TITRATE IV 04/04/17 05:00 04/07/17 16:58 Warfarin Sodium (Coumadin) 5 mg DAILY@1600 PO 04/05/17 16:00 04/07/17 16:17 Levetriacetam (Keppra) 500 mg Q12HR PO 04/07/17 21:00 04/07/17 20:46 Objective Remarks GENERAL: nad SKIN: Warm and dry. NECK: Supple, trachea midline. No JVD or lymphadenopathy. LYMPHATIC: No adenopathy. CARDIOVASCULAR: Regular rate and rhythm without murmurs. RESPIRATORY: Breath sounds equal bilaterally. No accessory muscle use. GASTROINTESTINAL: Abdomen soft, non-tender, nondistended. EXTREMITIES: No cyanosis, or edema. Assessment/Plan Problem List: (1) Occlusion of sagittal venous sinus ICD Codes: G08 - Intracranial and intraspinal phlebitis and thrombophlebitis Status: Acute Plan: --currently on heparin-->Coumadin --will need lifetime anticoagulation. --hypercoag w/u pending --LE U/S showed DVT History: --presented with weakness in the right upper extremity x 1 day. brain venography was obtained and this showed a thrombosis of the anterior and the posterior portion of the sagittal sinus was patent. -- no past medical history of any type of thrombosis. (2) DVT, bilateral lower limbs ICD Codes: I82.403 - Acute embolism and thrombosis of unspecified deep veins of lower extremity, bilateral Status: Acute Plan: --on heparin-->coumadin U/S, lower extremities showed bilateral lower extremity DVT Assessment 56y/o male admitted with superior sagittal sinus thrombosis history of hyperlipidemia, gastroesophageal reflux disease, history of nondisplaced fracture of the pelvis and left radial fracture after he fell off a ladder in 2013 and history of cataracts Plan 1. continue heparin gtt and coumadin INR 1.5 2. Needs to have INR > 2 for 72 hours before starting heparin in this high risk patient 3. daily coags Romaine Flores MD Apr 07, 2017 23:51
[2017-04-07 23:52] LABS: VDRL CSF NON-REACTIVE (NON-REACTVE)
[2017-04-08] VITALS (12 sets, daily range): BP systolic 108–131; BP diastolic 74–82; PULSE 60–99; RESP 13–26; TEMP 97.8–98.3; O2SAT 92–99
[2017-04-08 03:53] LABS: THROMBIN TIME FOR LA ND sec (13-19)
[2017-04-08 03:53] LABS: CSF ANGIOTENSIN CONV ENZYME LESS THAN 5 U/L (< OR = 15)
[2017-04-08 05:55] LABS: INTERNATIONAL NORMALIZED RATIO 1.7 RATIO; PROTHROMBIN TIME - PATIENT 19.5 SEC (9.8-11.6)
[2017-04-08 05:59] LABS: APTT (PATIENT) 58.2 SEC (24.3-30.1)
[2017-04-08] MEDS: SODIUM CHLORIDE 0.9% FLUSH 10 ML FLUSH IV FLUSH SCH ×2 (07:24→20:23)
[2017-04-08] MEDS: levETIRAcetam 500 MG TAB PO SCH ×2 (07:44→20:22)
--- NOTE | 2017-04-08 08:21 | HHI.PR ---
Subjective Remarks mri repeat shows some slight sah not seen on ct but some slight enlargement of left cortical abn and now a new larger r frontal cortical edema and venous infarct clinically a little bit slurred speech now over phone but nurse tells me moving legs fine and left arm ok still weak but able to move rue and not fisted i dw pt and over phone consented him to start iv heparin and he agreed to go ahead and start at 5 am today 16 hours after LP the risk of bleeding into low back and paralysis of ble was explained to him as the risk of bleeding into brain and some blood already there I notified him of that but if we do not start the heparin now we risk further infarcts into brain and even coma he agrees as such to start heparin with these risks and benefit explained i was hoping to wait 24 hours after LP as he told me late last that he has had rue sx since last wednesday figuring this clot has been present since then, but with the drastic change in the mri over last 24 hours i cannot wait any longer 04/06/17 no co overnoc Objective Vital Signs Date Time Temp Pulse Resp B/P (MAP) Pulse Ox O2 Delivery O2 Flow Rate FiO2 04/08/17 06:00 70 04/08/17 04:00 97.9 60 18 108/79 (89) 92 04/08/17 04:00 60 04/08/17 02:00 72 04/08/17 00:00 98.0 68 22 112/80 (91) 95 04/08/17 00:00 68 04/07/17 22:00 68 04/07/17 21:55 99 04/07/17 20:00 84 04/07/17 20:00 98.3 84 22 117/85 (96) 98 04/07/17 19:00 100 Room Air 04/07/17 18:00 82 04/07/17 16:00 98.4 68 27 133/83 (100) 98 04/07/17 16:00 68 04/07/17 14:00 73 04/07/17 12:00 98.2 74 22 130/90 (103) 98 04/07/17 12:00 74 04/07/17 10:00 72 I/O 8/23/17 8/23/04/07/17 04/08/17 04/08/17 04/08/17 07:00 15:00 23:00 07:00 15:00 23:00 Intake Total 240 ml 616 ml 1561 ml 406 ml Output Total 800 ml 775 ml 1335 ml Balance -560 ml 616 ml 786 ml -929 ml Intake Oral 240 ml 1350 ml 240 ml IV Total 616 ml 211 ml 166 ml Output Urine Total 800 ml 775 ml 1335 ml Stool Total 0 ml # Voids 4 # Bowel Movements 1 0 Result Diagram: 04/07/17 0352 04/05/17 0100 Objective Remarks awake alert vff face sym nl speech 5/5 ffm almost same as left can make fist r hand ble 5/5 and lue 5/5 Assessment and Plan Assessment and Plan imp sst on coumadin hep doing well can go to floor today tele keppra follow inr 1.7 doing well oob when he awoke this am thought r arm numb and not doing quite as well but ok now and better every day maybe dc tomorrow if inr 2-2.5 Masoud Acosta MD Apr 08, 2017 08:21
--- NOTE | 2017-04-08 08:23 | HHI.PR ---
Subjective Remarks slept on his right arm and awoke with numbness and weakness that quickly resolved Objective Vitals heart reg lung cta abd s/nt ext no edema Vital Signs Date Time Temp Pulse Resp B/P (MAP) Pulse Ox O2 Delivery O2 Flow Rate FiO2 04/08/17 06:00 70 04/08/17 04:00 97.9 60 18 108/79 (89) 92 04/08/17 04:00 60 04/08/17 02:00 72 04/08/17 00:00 98.0 68 22 112/80 (91) 95 04/08/17 00:00 68 04/07/17 22:00 68 04/07/17 21:55 99 04/07/17 20:00 84 04/07/17 20:00 98.3 84 22 117/85 (96) 98 04/07/17 19:00 100 Room Air 04/07/17 18:00 82 04/07/17 16:00 98.4 68 27 133/83 (100) 98 04/07/17 16:00 68 04/07/17 14:00 73 04/07/17 12:00 98.2 74 22 130/90 (103) 98 04/07/17 12:00 74 04/07/17 10:00 72 Result Diagram: 04/07/17 0352 04/05/17 0100 Imaging Last Impressions Head CT 04/04/17 0000 Signed Impressions: Service Date/Time: Tuesday, April 04, 2017 04:06 - CONCLUSION: Negative exam. Augie Wong MD Thoracic Spine MRI 04/03/17 1029 Signed Impressions: Service Date/Time: Monday, April 03, 2017 11:41 - CONCLUSION: 1. Mild degenerative changes without compression fracture. 2. Disc bulges/protrusions at T5-6, T6-7 and T9-10 levels without canal stenosis. Keegan Dodd MD Cervical Spine MRI 04/03/17 1029 Signed Impressions: Service Date/Time: Monday, April 03, 2017 11:41 - CONCLUSION: There is some motion artifact but no definite enhancement seen. Please refer to MRI of the cervical spine for further detail on 04-02-17. Keegan Dodd MD Brain MRI 04/03/17 1029 Signed Impressions: Service Date/Time: Monday, April 03, 2017 11:41 - CONCLUSION: Unremarkable MRI of the brain. No enhancement.. Keegan Dodd MD Head/Brain Mag Res Venography 04/03/17 0000 Signed Impressions: Service Date/Time: Monday, April 03, 2017 11:41 - CONCLUSION: 1. Abnormal examination demonstrating thrombosis of the anterior and mid portions of the superior sagittal sinus. The posterior portions of the sagittal sinus are patent. The transverse sinuses, straight sinus and internal cerebral veins are patent. Dipesh Zamora MD Chest X-Ray 04/02/17 1531 Signed Impressions: Service Date/Time: Sunday, April 02, 2017 15:55 - CONCLUSION: 1. No acute cardiopulmonary findings. Dipesh Zamora MD Head Magnetic Resonance Angiography 04/02/17 0000 Signed Impressions: Service Date/Time: Sunday, April 02, 2017 16:05 - CONCLUSION: 1. Negative examination. Dipesh Zamora MD Carotid Artery Ultrasound 04/02/17 0000 Signed Impressions: Service Date/Time: Sunday, April 02, 2017 20:18 - CONCLUSION: Negative. No significant plaque or narrowing of either carotid. Ramsey Swartz MD A/P Problem List: (1) CVA (cerebral vascular accident) ICD Codes: I63.9 - Cerebral infarction, unspecified Status: Acute Plan: - Pt is a 56 y/o male with hx of previous multiple nondisplaced fractures of the pelvis and left radial fracture in 2013 after a fall off of a ladder - Pt presented to the ED with RUE paresthesias and weakness - Head CT (04/02) --> Negative - MRI/MRA Brain (04/02) --> Negative - Carotid US (04/02/17) --> No hemodynamically significant stenosis - 2D echo (04/02/17) --> EF 50-55% - MRI Cervical spine (04/02) --> - Central canal stenosis at C5-6 secondary to diffuse disc bulge with obliteration of the CSF surrounding the cord and mild flattening. - Broad base disc bulge at C4-5 greatest in left parasagittal region which reached the anterior cord with slight flattening and turning. There is no abnormal signal. - Moderate to severe narrowing of the neural foramina bilaterally at the C4- 5 and C5-6 levels as well as on the left at C2-3. - Milder disc bulge at C3-4 with no mass effect upon the cord. - Diffuse degenerative disc change. - b/l US (04/04/17) --> B/L DVT. occlusive right and nonocclusive left lower ext - CT Brain (04/04/17) --> No acute findings -MRV- shows superior sag. sinus vein thrombosis - Repeat MRI 04/03 shows right frontal and left parietal infarct and possible left frontal infarct. possible sah -heparin bridge to coumadin -hypercoag panel pending -keppra prophylaxis. -.oob today. transfer out of icu to tele bed pending - will need close f/u after d/c. (2) Right arm weakness ICD Codes: R29.898 - Other symptoms and signs involving the musculoskeletal system Status: Acute Plan: see above (3) Occlusion of sagittal venous sinus ICD Codes: G08 - Intracranial and intraspinal phlebitis and thrombophlebitis Status: Acute Plan: - pt had LP (04/03/17) - CSF studies pending - case d/w Hematology, Dr. Flores (04/03/17) (4) DVT, bilateral lower limbs ICD Codes: I82.403 - Acute embolism and thrombosis of unspecified deep veins of lower extremity, bilateral Status: Acute Tobias Cuellar MD Apr 08, 2017 08:23
[2017-04-08 10:29] LABS: ALBUMIN SERUM 3430 mg/dL (3200 - 4800); IGG CSF 4.3 mg/dL (<=8.1); IGG INDEX CSF 0.62 (<=0.85); IGG SERUM 907 mg/dL (767 - 1590); IGG/ALBUMIN CSF 0.16 (<=0.21); IGG/ALBUMIN SERUM 0.26 (<=0.40); SYNTHESIS RATE CSF 4.39 mg/24 h (<=12)
[2017-04-08] MEDS: HEPARIN-D5W 25,000 U/250 ML 250 ML IV SCH (14:09)
[2017-04-08] MEDS ORDERED: HEPARIN-D5W 25,000 U/250 ML 250 ML IV SCH (14:45)
[2017-04-08] MEDS: WARFARIN SOD 5 MG TAB PO SCH (15:59)
[2017-04-08] MEDS: PRAVASTATIN SOD 40 MG TAB PO SCH (20:22)
--- NOTE | 2017-04-08 22:58 | PD.ONC.PN ---
Subjective Subjective Remarks doing ok Ongoing anticoagulation with heparin INR not therapeutic yet Objective Data Date Time Temp Pulse Resp B/P (MAP) Pulse Ox O2 Delivery O2 Flow Rate FiO2 04/08/17 22:00 80 04/08/17 20:00 90 04/08/17 20:00 98.3 90 24 131/82 (98) 96 04/08/17 19:00 Room Air 04/08/17 18:00 89 04/08/17 16:00 98.0 87 13 112/78 (89) 97 04/08/17 16:00 84 04/08/17 14:00 98 04/08/17 12:00 78 04/08/17 12:00 98.0 86 26 127/74 (91) 96 04/08/17 10:00 99 04/08/17 08:00 74 04/08/17 08:00 97.8 74 20 122/78 (93) 99 04/08/17 07:00 Room Air 04/08/17 06:00 70 04/08/17 04:00 97.9 60 18 108/79 (89) 92 04/08/17 04:00 60 04/08/17 02:00 72 04/08/17 00:00 98.0 68 22 112/80 (91) 95 04/08/17 00:00 68 04/08/17 04/08/17 04/08/17 07:00 15:00 23:00 Intake Total 406 ml 96 ml 773 ml Output Total 1335 ml 1050 ml Balance -929 ml 96 ml -277 ml Result Diagram: 04/07/17 0352 04/05/17 0100 Laboratory Results Laboratory Tests Test 04/08/17 05:12 Prothrombin Time 19.5 SEC Prothromb Time International Ratio 1.7 RATIO Activated Partial Thromboplast Time 58.2 SEC Administered Medications Medications (Trade) Dose Ordered Sig/Olayinka Route PRN Reason Start Time Stop Time Status Last Admin Dose Admin Sodium Chloride (NS Flush) 2 ml UNSCH PRN IV FLUSH FLUSH AFTER USING IV ACCESS 04/02/17 15:45 04/03/17 05:29 Sodium Chloride (NS Flush) 2 ml BID IV FLUSH 04/02/17 21:00 04/08/17 20:23 Pravastatin Sodium (Pravachol) 40 mg HS PO 04/02/17 21:00 04/08/17 20:22 Heparin Sodium/ Dextrose 250 ml @ 0 mls/hr TITRATE IV 04/04/17 05:00 04/08/17 14:09 Warfarin Sodium (Coumadin) 5 mg DAILY@1600 PO 04/05/17 16:00 04/08/17 15:59 Levetriacetam (Keppra) 500 mg Q12HR PO 04/07/17 21:00 04/08/17 20:22 Objective Remarks GENERAL:nad SKIN: Warm and dry. HEAD: Normocephalic. EYES: No scleral icterus. No injection or drainage. NECK: Supple, trachea midline. No JVD or lymphadenopathy. LYMPHATIC: No adenopathy. CARDIOVASCULAR: Regular rate and rhythm without murmurs. RESPIRATORY: Breath sounds equal bilaterally. No accessory muscle use. GASTROINTESTINAL: Abdomen soft, non-tender, nondistended. EXTREMITIES: No cyanosis, or edema. Assessment/Plan Problem List: (1) Occlusion of sagittal venous sinus ICD Codes: G08 - Intracranial and intraspinal phlebitis and thrombophlebitis Status: Acute Plan: --currently on heparin-->Coumadin --will need lifetime anticoagulation. --hypercoag w/u pending --LE U/S showed DVT History: --presented with weakness in the right upper extremity x 1 day. brain venography was obtained and this showed a thrombosis of the anterior and the posterior portion of the sagittal sinus was patent. -- no past medical history of any type of thrombosis. (2) DVT, bilateral lower limbs ICD Codes: I82.403 - Acute embolism and thrombosis of unspecified deep veins of lower extremity, bilateral Status: Acute Plan: --on heparin-->coumadin U/S, lower extremities showed bilateral lower extremity DVT Assessment 56y/o male admitted with superior sagittal sinus thrombosis history of hyperlipidemia, gastroesophageal reflux disease, history of nondisplaced fracture of the pelvis and left radial fracture after he fell off a ladder in 2013 and history of cataracts Plan 1. continue heparin gtt and coumadin INR 1.7 2. Needs to have INR > 2 for 72 hours before starting heparin in this high risk patient 3. daily coags Romaine Flores MD Apr 08, 2017 22:58
[2017-04-09] VITALS: BP 119/78; PULSE 86; RESP 20; TEMP 97.9; O2SAT 96
[2017-04-09 04:00] VITALS: BP 120/72; PULSE 84; RESP 18; TEMP 97.8; O2SAT 97
[2017-04-09 05:09] LABS: INTERNATIONAL NORMALIZED RATIO 1.9 RATIO; PROTHROMBIN TIME - PATIENT 21.4 SEC (9.8-11.6)
[2017-04-09 06:00] VITALS: PULSE 65
[2017-04-09 06:32] LABS: APTT (PATIENT) 46.9 SEC (24.3-30.1)
--- NOTE | 2017-04-09 07:44 | HHI.PR ---
Subjective Remarks mri repeat shows some slight sah not seen on ct but some slight enlargement of left cortical abn and now a new larger r frontal cortical edema and venous infarct clinically a little bit slurred speech now over phone but nurse tells me moving legs fine and left arm ok still weak but able to move rue and not fisted i dw pt and over phone consented him to start iv heparin and he agreed to go ahead and start at 5 am today 16 hours after LP the risk of bleeding into low back and paralysis of ble was explained to him as the risk of bleeding into brain and some blood already there I notified him of that but if we do not start the heparin now we risk further infarcts into brain and even coma he agrees as such to start heparin with these risks and benefit explained i was hoping to wait 24 hours after LP as he told me late last that he has had rue sx since last wednesday figuring this clot has been present since then, but with the drastic change in the mri over last 24 hours i cannot wait any longer 04/06/17 no co overnoc Objective Vital Signs Date Time Temp Pulse Resp B/P (MAP) Pulse Ox O2 Delivery O2 Flow Rate FiO2 04/09/17 06:00 65 04/09/17 04:00 97.8 84 18 120/72 (88) 97 04/09/17 04:00 84 04/09/17 00:00 97.9 86 20 119/78 (92) 96 04/09/17 00:00 86 04/08/17 22:00 80 04/08/17 20:00 90 04/08/17 20:00 98.3 90 24 131/82 (98) 96 04/08/17 19:00 Room Air 04/08/17 18:00 89 04/08/17 16:00 98.0 87 13 112/78 (89) 97 04/08/17 16:00 84 04/08/17 14:00 98 04/08/17 12:00 78 04/08/17 12:00 98.0 86 26 127/74 (91) 96 04/08/17 10:00 99 04/08/17 08:00 74 04/08/17 08:00 97.8 74 20 122/78 (93) 99 I/O 04/08/17 04/08/17 04/08/17 04/09/17 04/09/17 04/09/17 06:59 14:59 22:59 06:59 14:59 22:59 Intake Total 406 ml 96 ml 773 ml 1204 ml Output Total 1335 ml 1050 ml 900 ml Balance -929 ml 96 ml -277 ml 304 ml Intake Oral 240 ml 720 ml 1060 ml IV Total 166 ml 96 ml 53 ml 144 ml Output Urine Total 1335 ml 1050 ml 900 ml # Bowel Movements 0 1 0 Result Diagram: 04/07/17 0352 04/05/17 0100 Objective Remarks awake alert vff face sym nl speech 5/5 ffm almost same as left can make fist r hand ble 5/5 and lue 5/5 nl gait Assessment and Plan Assessment and Plan imp sst on coumadin hep doing well can go to floor today tele kera follow inr 1.7 doing well oob when he awoke this am thought r arm numb and not doing quite as well but ok now and better every day maybe dc tomorrow if inr 2-2.5 / 04/09/17 no new co nl gait inr 1.8 hypercoag echo andholter neg bp fine he can dc at noon today and needs daily inr brandon tanhari sun 8 am ? [facility]? and needs to call my office for result noon each day for the gas distribution supervisor neurologist and we will dose him daily dc on the keppra also 500 bid i will follow inr in future he needs scripts as above unless [facility] has a lab open sat and sun? Masoud Acosta MD Apr 09, 2017 07:44
[2017-04-09 08:00] VITALS: BP 126/76; PULSE 80; PULSE 85; RESP 25; TEMP 98.2; O2SAT 98
[2017-04-09] MEDS: levETIRAcetam 500 MG TAB PO SCH (08:27)
[2017-04-09] MEDS: SODIUM CHLORIDE 0.9% FLUSH 10 ML FLUSH IV FLUSH SCH (08:27)
--- NOTE | 2017-04-09 09:08 | HHI.PR ---
Subjective Remarks ambulating good balance and strength in rue no problems with pain or swelling in legs. Objective Vitals heart reg lung cta abd s/nt ext no edema Vital Signs Date Time Temp Pulse Resp B/P (MAP) Pulse Ox O2 Delivery O2 Flow Rate FiO2 04/09/17 07:00 Room Air 04/09/17 06:00 65 04/09/17 04:00 97.8 84 18 120/72 (88) 97 04/09/17 04:00 84 04/09/17 00:00 97.9 86 20 119/78 (92) 96 04/09/17 00:00 86 04/08/17 22:00 80 04/08/17 20:00 90 04/08/17 20:00 98.3 90 24 131/82 (98) 96 04/08/17 19:00 Room Air 04/08/17 18:00 89 04/08/17 16:00 98.0 87 13 112/78 (89) 97 04/08/17 16:00 84 04/08/17 14:00 98 04/08/17 12:00 78 04/08/17 12:00 98.0 86 26 127/74 (91) 96 04/08/17 10:00 99 Result Diagram: 04/07/17 0352 04/05/17 0100 Imaging Last Impressions Head CT 04/04/17 0000 Signed Impressions: Service Date/Time: Tuesday, April 04, 2017 04:06 - CONCLUSION: Negative exam. Augie Wong MD Thoracic Spine MRI 04/03/17 1029 Signed Impressions: Service Date/Time: Monday, April 03, 2017 11:41 - CONCLUSION: 1. Mild degenerative changes without compression fracture. 2. Disc bulges/protrusions at T5-6, T6-7 and T9-10 levels without canal stenosis. Keegan Dodd MD Cervical Spine MRI 04/03/17 1029 Signed Impressions: Service Date/Time: Monday, April 03, 2017 11:41 - CONCLUSION: There is some motion artifact but no definite enhancement seen. Please refer to MRI of the cervical spine for further detail on 04-02-17. Keegan Dodd MD Brain MRI 04/03/17 1029 Signed Impressions: Service Date/Time: Monday, April 03, 2017 11:41 - CONCLUSION: Unremarkable MRI of the brain. No enhancement.. Keegan Dodd MD Head/Brain Mag Res Venography 04/03/17 0000 Signed Impressions: Service Date/Time: Monday, April 03, 2017 11:41 - CONCLUSION: 1. Abnormal examination demonstrating thrombosis of the anterior and mid portions of the superior sagittal sinus. The posterior portions of the sagittal sinus are patent. The transverse sinuses, straight sinus and internal cerebral veins are patent. Dipesh Zamora MD Chest X-Ray 04/02/17 1531 Signed Impressions: Service Date/Time: Sunday, April 02, 2017 15:55 - CONCLUSION: 1. No acute cardiopulmonary findings. Dipesh Zamora MD Head Magnetic Resonance Angiography 04/02/17 0000 Signed Impressions: Service Date/Time: Sunday, April 02, 2017 16:05 - CONCLUSION: 1. Negative examination. Dipesh Zamora MD Carotid Artery Ultrasound 04/02/17 0000 Signed Impressions: Service Date/Time: Sunday, April 02, 2017 20:18 - CONCLUSION: Negative. No significant plaque or narrowing of either carotid. Ramsey Swartz MD A/P Problem List: (1) CVA (cerebral vascular accident) ICD Codes: I63.9 - Cerebral infarction, unspecified Status: Acute Plan: - Pt is a 56 y/o male with hx of previous multiple nondisplaced fractures of the pelvis and left radial fracture in 2013 after a fall off of a ladder - Pt presented to the ED with RUE paresthesias and weakness - Head CT (04/02) --> Negative - MRI/MRA Brain (04/02) --> Negative - Carotid US (04/02/17) --> No hemodynamically significant stenosis - 2D echo (04/02/17) --> EF 50-55% - MRI Cervical spine (04/02) --> - Central canal stenosis at C5-6 secondary to diffuse disc bulge with obliteration of the CSF surrounding the cord and mild flattening. - Broad base disc bulge at C4-5 greatest in left parasagittal region which reached the anterior cord with slight flattening and turning. There is no abnormal signal. - Moderate to severe narrowing of the neural foramina bilaterally at the C4- 5 and C5-6 levels as well as on the left at C2-3. - Milder disc bulge at C3-4 with no mass effect upon the cord. - Diffuse degenerative disc change. - b/l US (04/04/17) --> B/L DVT. occlusive right and nonocclusive left lower ext - CT Brain (04/04/17) --> No acute findings -MRV- shows superior sag. sinus vein thrombosis - Repeat MRI 04/03 shows right frontal and left parietal infarct and possible left frontal infarct. possible sah -heparin bridge to coumadin...inr 1.9 -hypercoag panel pending -keppra prophylaxis. -Neurology is discharging the pt today...I spoke with dr Acosta who feels overlapping further with heparin will increase his chance of hemorrhagic conversion of his infarcts. So pt will go home today with hhc/ pt. stat inr's over weekend to be reviewed by neurology automation engineering technician per Dr Acosta. I am working out where the pt can get his inr checked this weekend. (2) Right arm weakness ICD Codes: R29.898 - Other symptoms and signs involving the musculoskeletal system Status: Acute Plan: see above (3) Occlusion of sagittal venous sinus ICD Codes: G08 - Intracranial and intraspinal phlebitis and thrombophlebitis Status: Acute Plan: - pt had LP (04/03/17) - CSF studies pending - case d/w Hematology, Dr. Flores (04/03/17) (4) DVT, bilateral lower limbs ICD Codes: I82.403 - Acute embolism and thrombosis of unspecified deep veins of lower extremity, bilateral Status: Acute Tobias Cuellar MD Apr 09, 2017 09:07
[2017-04-09] MEDS ORDERED: LEVE500 PO (09:10)
[2017-04-09] MEDS ORDERED: PRAV40TA PO (09:10)
[2017-04-09] MEDS ORDERED: COUM5TAB PO (09:10)
--- NOTE | 2017-04-09 09:11 | HHI.DCPOC ---
Discharge Care Plan Diagnosis: (1) Occlusion of sagittal venous sinus (2) DVT, bilateral lower limbs (3) CVA (cerebral vascular accident) Goals to Promote Your Health * To prevent worsening of your condition and complications * To maintain your health at the optimal level Directions to Meet Your Goals Take your medications as prescribed Follow your dietary instruction Follow activity as directed Keep your appointments as scheduled Take your immunizations and boosters as scheduled If your symptoms worsen call your PCP, if no PCP go to Urgent Care Center or Emergency Room Smoking is Dangerous to Your Health. Avoid second hand smoke Call the 24-hour hour crisis hotline for domestic abuse at Tobias Cuellar MD Apr 09, 2017 09:10
--- NOTE | 2017-04-09 09:20 | HHI.FF ---
Face to Face Verification Diagnosis: (1) Occlusion of sagittal venous sinus (2) CVA (cerebral vascular accident) (3) DVT, bilateral lower limbs Physical Therapy Order: Evaluate and Treat, Improve ambulation Occupational Therapy Order: Evaluate and Treat Home Health Nursing Order: Medical education Signs/symptoms of disease process Nursing assessment with vital signs Instructions: inr check 04/12, 04/14....call Dr Masoud Acosta with results immediately please to make any necessary adjustment in coumadin dose. I have seen patient Bryan Colon on 04/09/17. My clinical findings support the need for the requested home health care services because: Need for psychosocial assistance I certify that my clinical findings support that this patient is homebound because: Need for psychosocial assistance Tobias uCellar MD Apr 09, 2017 09:20
[2017-04-09 10:00] VITALS: PULSE 96
[2017-04-09] MEDS: WARFARIN SOD 5 MG TAB PO SCH (11:25)
[2017-04-09 15:55] LABS: PHOSPHATIDYLSERINE AB IGA LESS THAN 20.0 U/mL (< 20.0); PHOSPHATIDYLSERINE AB IGM LESS THAN 25.0 U/mL (< 25.0)
--- NOTE | 2017-04-09 16:03 | HHI.DS ---
Discharge Summary Admission Date Apr 03, 2017 at 16:46 Discharge Date: Apr 09, 2017 Admitting Diagnosis CVA v TIA (1) CVA (cerebral vascular accident) Diagnosis: Principal ICD Codes: I63.9 - Cerebral infarction, unspecified Status: Acute (2) Right arm weakness Diagnosis: Principal ICD Codes: R29.898 - Other symptoms and signs involving the musculoskeletal system Status: Acute (3) Occlusion of sagittal venous sinus Diagnosis: Principal ICD Codes: G08 - Intracranial and intraspinal phlebitis and thrombophlebitis Status: Acute (4) DVT, bilateral lower limbs Diagnosis: Principal ICD Codes: I82.403 - Acute embolism and thrombosis of unspecified deep veins of lower extremity, bilateral Status: Acute Brief History Mr. Colon is a pleasant 56 y/o male without significant PMH who presented to the ED for evaluation of RUE numbness and weakness. Pt reportedly woke up at 8: 30AM this morning and "felt weird." His states that he felt like his right arm was "asleep." He dismissed this and went back sleep. He later woke up and it felt that his arm was still numb. He noticed a decrease in champagne maker strength when trying to hold his coffee mug. After a few hours he felt like it was improving, but then it worsened again and he decided to come to the ED for evaluation. He denies any chest pain, SOB, headache or visual changes. Pt was admitted for further workup and to r/o CVA. CBC/BMP: 04/07/17 0352 04/05/17 0100 Significant Findings Laboratory Tests Test 04/06/17 21:59 04/07/17 03:52 04/08/17 05:12 04/09/17 03:50 Activated Partial Thromboplast Time 51.5 SEC (24.3-30.1) 52.3 SEC (24.3-30.1) 58.2 SEC (24.3-30.1) 46.9 SEC (24.3-30.1) Prothrombin Time 16.4 SEC (9.8-11.6) 19.5 SEC (9.8-11.6) 21.4 SEC (9.8-11.6) Hospital Course (1) CVA (cerebral vascular accident) - Pt is a 56 y/o male with hx of previous multiple nondisplaced fractures of the pelvis and left radial fracture in 2013 after a fall off of a ladder - Pt presented to the ED with RUE paresthesias and weakness - Head CT (04/02) --> Negative - MRI/MRA Brain (04/02) --> Negative - Carotid US (04/02/17) --> No hemodynamically significant stenosis - 2D echo (04/02/17) --> EF 50-55% - MRI Cervical spine (04/02) --> - Central canal stenosis at C5-6 secondary to diffuse disc bulge with obliteration of the CSF surrounding the cord and mild flattening. - Broad base disc bulge at C4-5 greatest in left parasagittal region which reached the anterior cord with slight flattening and turning. There is no abnormal signal. - Moderate to severe narrowing of the neural foramina bilaterally at the C4- 5 and C5-6 levels as well as on the left at C2-3. - Milder disc bulge at C3-4 with no mass effect upon the cord. - Diffuse degenerative disc change. - b/l US (04/04/17) --> B/L DVT. occlusive right and nonocclusive left lower ext - CT Brain (04/04/17) --> No acute findings -LP performed and no infection found -MRV- shows superior sag. sinus vein thrombosis - Repeat MRI 04/03 shows right frontal and left parietal infarct and possible left frontal infarct. possible sah -On day of d/c pt rue weakness was resolved and he was ambulatory in the uni -heparin bridge to coumadin...inr 1.9 -hypercoag panel pending -keppra prophylaxis. -Neurology is discharging the pt today...I spoke with dr Acosta who feels overlapping further with heparin will increase his chance of hemorrhagic conversion of his infarcts. So pt will go home today with hhc/ pt. stat inr's over weekend to be reviewed by neurology plate conditioner per Dr Acosta. I am working out where the pt can get his inr checked this weekend. -He will f/u next week with neurology and also he will f/u with pcp. (2) Right arm weakness (3) Occlusion of sagittal venous sinus (4) DVT, bilateral lower limbs Pt Condition on Discharge: Stable Discharge Disposition: Disch w/ Home Health Serv Discharge Instructions DIET: Follow Instructions for: Heart Healthy Diet Activities you can perform: Regular-No Restrictions Follow up Referrals: Neurology - 04/12/17 with Masoud Acosta MD PCP Follow-up - [address] con [facility]/ with [facility] New Medications: Levetiracetam (Keppra) 500 Mg Tab 500 MG PO Q12HR for Seizure Control, #60 TAB 3 Refills Pravastatin (Pravachol) 40 Mg Tab 40 MG PO HS for Cholesterol Management, #30 TAB 3 Refills Warfarin (Coumadin) 5 Mg Tab 5 MG PO DAILY@1600 for dvt, #30 TAB 3 Refills Tobias Cuellar MD Apr 09, 2017 16:02
== END 2017-04-09 11:53 | disposition home health service (06) | DRG 64 ==
LOC: NEPE 12:49 → NEDA 15:41 → NEPHCDU 17:52 → OBSVTOIN 04-03 16:46 → N03A 04-03 22:49
PROVIDERS: ADMIT Hospitalist; ATTEND Hospitalist
PROC: 009U3ZX Drainage of Spinal Canal, Percutaneous Approach, Diagnostic (ICD-10-PCS; principal; 2017-04-03)
DX: I63.9 Cerebral infarction, unspecified (principal); G08 Intracranial and intraspinal phlebitis and thrombophlebitis; I60.9 Nontraumatic subarachnoid hemorrhage, unspecified; I82.403 Acute embolism and thrombosis of unspecified deep veins of lower extremity, bilateral; M50.221 Other cervical disc displacement at C4-C5 level; M50.222 Other cervical disc displacement at C5-C6 level; M48.02 Spinal stenosis, cervical region; E78.5 Hyperlipidemia, unspecified; G83.21 Monoplegia of upper limb affecting right dominant side; R20.0 Anesthesia of skin; Z88.0 Allergy status to penicillin
CPT/HCPCS: 62270; 70450; 70544; 70545; 70546; 70551; 70553; 71010; 72141; 72156; 72157; 77003; 80048; 80061; 80307; 81240; 81241; 81291; 82040; 82042; 82140; 82164; 82550; 82607; 82746; 82784; 82945; 83090; 83605; 83615; 83873; 83921; 84157; 84425; 84439; 84443; 84484; 85025; 85027; 85240; 85300; 85303; 85306; 85307; 85384; 85610; 85613; 85652; 85730; 86038; 86140; 86146; 86147; 86148; 86403; 86430; 86592; 86618; 86780; 87015; 87040; 87070; 87102; 87116; 87205; 87206; 87497; 87498; 87529; 87641; 87801; 89051; 93005; 93225; 93226; 93306; 93880; 93970; 95819; 96361; 96374; 96375; A9579; G0378; J0133; J1100; J1644; J1953; J2060; J7030

== ENCOUNTER → 2017-04-10 | Outpatient (CLI) | payer OTHER ==
[~2017-04-10] MED LIST changes: -BISA10R PR; +COUM5TAB PO; -DOCU1CAP39 PO; -ENOX40P SQ; -FLEEENE3 PR; -HYDR-3580 PO; +LEVE500 PO; -MAGN30S PO; +PRAV40TA PO
[2017-04-10 09:11] LABS: INTERNATIONAL NORMALIZED RATIO 2.3 RATIO; PROTHROMBIN TIME - PATIENT 26.8 SEC (9.8-11.6)
== END ==
LOC: HLAB 08:39
PROVIDERS: ATTEND Hospitalist
DX: D68.9 Coagulation defect, unspecified (principal)
CPT/HCPCS: 36415; 85610

== ENCOUNTER → 2017-04-11 | Outpatient (CLI) | payer OTHER ==
[2017-04-11 08:54] LABS: INTERNATIONAL NORMALIZED RATIO 2.1 RATIO; PROTHROMBIN TIME - PATIENT 23.4 SEC (9.8-11.6)
== END ==
LOC: HLAB 08:18
PROVIDERS: ATTEND Hospitalist
DX: D68.9 Coagulation defect, unspecified (principal)
CPT/HCPCS: 36415; 85610